=== PATIENT | male | born 1975 ===

== ENCOUNTER 2017-09-15 12:34 | Inpatient (IN) | payer OTHER ==
--- NOTE | 2017-09-15 14:41 | RAD ---
HISTORY: SOB COMPARISON: Lung bases on CT abdomen and pelvis performed 10/05/16 TECHNIQUE: Chest, one view. FINDINGS: Examination limited by habitus and hypoinflation. LUNGS: No focal consolidation. Hiatal hernia demonstrated on CT is not appreciated on this single portable view. Please note that chest x-ray has limited sensitivity for the detection of pulmonary masses. PLEURA: No significant pleural effusion identified. No definite pneumothorax . CARDIOVASCULAR: The cardiomediastinal silhouette appears within normal limits of size. OSSEOUS STRUCTURES: No acute osseous abnormality identified. VISUALIZED UPPER ABDOMEN: Unremarkable. OTHER FINDINGS: None. IMPRESSION: No focal consolidation, significant pleural effusion, or definite pneumothorax identified.
--- NOTE | 2017-09-15 14:43 | C.PDOC ---
History Of Present Illness 42 year old male with PMHx of seizures presents to the ED for evaluation of intermittent episodes of head and ear pressure for the past 3 weeks that has been more frequent over the past few days. 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 Patient reports that he had diarrhea 3 weeks ago after eating out in a buffet, diarrhea has since resolved. Patient states his episodes last between 5-10 minutes when he feels head and ear pressure along with dizziness, nausea, blurry vision and feel unsteady on his feet. Patient reports he tried taking Ibuprofen. Patient denies cough, congestion, fever, abdominal pain, diarrhea, constipation, vomit, urinary symptoms. Time Seen by Provider: 09/15/17 13:42 Chief Complaint (Nursing): Dizziness/Lightheaded History Per: Patient History/Exam Limitations: language barrier Onset/Duration Of Symptoms: Days Current Symptoms Are (Timing): Gone Associated Symptoms Preceding Syncopal Episode: No Predromal Symptoms (Sudden Onset) Seizure Or Post-ictal Symptoms: None Fall Associated With With Symptoms: No Severity: None Recent travel outside of the [place]: No Additional History Per: Patient Past Medical History Reviewed: Historical Data, Nursing Documentation, Vital Signs Vital Signs: Last Vital Signs Temp 98.2 F 09/15/17 13:01 Pulse 60 09/15/17 13:01 Resp 20 09/15/17 13:01 BP 121/82 09/15/17 13:01 Pulse Ox 98 09/15/17 18:21 - Medical History PMH: Seizures Denies: Chronic Kidney Disease Other Surgeries: Benign cerebral tumor removed on 2009 Family History: States: Unknown Family Hx - Social History Hx Alcohol Use: Yes Hx Substance Use: No - Immunization History Hx Tetanus Toxoid Vaccination: No Hx Influenza Vaccination: No Hx Pneumococcal Vaccination: No Review Of Systems Constitutional: Negative for: Fever, Chills Eyes: Positive for: Vision Change ENT: Positive for: Ear Pain Cardiovascular: Negative for: Chest Pain, Palpitations Respiratory: Negative for: Cough Gastrointestinal: Positive for: Nausea. Negative for: Vomiting, Abdominal Pain Genitourinary: Negative for: Dysuria Musculoskeletal: Negative for: Back Pain Skin: Negative for: Rash Neurological: Positive for: Headache, Dizziness. Negative for: Weakness, Numbness Physical Exam - Physical Exam Appears: Non-toxic, No Acute Distress Skin: Normal Color, Warm, Dry Head: Atraumatic, Normacephalic Nose: No Discharge, No Deformity Oral Mucosa: Moist Neck: Normal ROM, Supple Chest: Symmetrical Cardiovascular: Rhythm Regular, No Murmur Respiratory: Normal Breath Sounds, No Rales, No Rhonchi, No Wheezing Gastrointestinal/Abdominal: Soft, No Tenderness, No Distention, No Rebound Extremity: Normal ROM, No Pedal Edema, No Calf Tenderness, No Deformity, No Swelling Neurological/Psych: Oriented x3, Normal Speech, Normal Cognition Gait: Steady ED Course And Treatment - Laboratory Results Result Diagrams: 09/15/17 15:06 09/15/17 15:06 ECG: Interpreted By Me, Viewed By Me ECG Rhythm: Sinus Bradycardia ECG Interpretation: Normal Rate From EC O2 Sat by Pulse Oximetry: 98 (On RA) Pulse Ox Interpretation: Normal - Radiology CXR: Interpreted by Me, Viewed By Me CXR Interpretation: Yes: Other (No focal consolidation, significant pleural effusion, or definite pneumothorax identified.). No: No Acute Disease, Infiltrates - CT Scan/US CT head Other Rad Studies (CT/US): Interpreted By Me, Read By Radiologist, Radiology Report Reviewed CT/US Interpretation: FINDINGS: HEMORRHAGE: No intracranial hemorrhage. BRAIN : There is a 2.8 x 2.1 cm hyperdense lesion with irregular enhancing rim in the left paramedian inferior frontal lobe with extensive vasogenic edema in the right frontal lobe extending to the genu of corpus callosum on the right. There is local mass effect, subfalcine herniation and approximately 6 mm midline shift from right to left. There is redemonstration of cystic encephalomalacia and gliosis in the left frontal lobe with dysmorphic calcifications in keeping with postsurgical changes. VENTRICLES: There is mild mass effect on the right frontal horn. No hydrocephalus. CALVARIUM: Status post left frontal craniotomy. SINUSES: Predominantly clear. MASTOID AIR CELLS: Predominantly clear P. OTHER FINDINGS: None. IMPRESSION: 1. 2.8 x 2.1 cm round lesion with irregular enhancing rim in the left paramedian inferior frontal lobe with extensive surrounding vasogenic edema extending to the genu of the corpus callosum on the right with local mass effect on the right frontal horn and 6 mm midline shift from right to left with subfalcine herniation. The differential considerations include glioblastoma, metastasis and abscess. MRI of the brain without and with intravenous contrast is recommended for further characterization. 2. Cystic encephalomalacia and gliosis with dysmorphic calcifications in the left frontal lobe in keeping with postsurgical changes. Critical findings were discussed with Dr. Valentina Platt on 09/15/2017 at 4:50 p.m. Medical Decision Making Medical Decision Making: Impression : 42 y/o male c/o head and ear pressure Plan: * CT head * EKG * CXR * Influenza A B test * UA Spoke with Dr. Ferguson who recomended an MRI with contrast in the morning as well as ICU admission for observation for 24 hrs. Patient's case was discussed with Dr. Mendez who says he will come down to evaluate the patient before accepting the patient to ICU. Patient had his previous tumor resection in [place] on 2016. Disposition Discussed With Dr.: Alton Ferguson Doctor Will See Patient In The: Hospital Counseled Patient/Family Regarding: Studies Performed, Diagnosis - Disposition Disposition: HOSPITALIZED Disposition Time: 18:22 Condition: GUARDED Forms: [facility] (Khmer) - Clinical Impression Clinical Impression: Brain tumor - Scribe Statement The provider has reviewed the documentation as recorded by the Scribe Raghu Avelar All medical record entries made by the Scribe were at my direction and personally dictated by me. I have reviewed the chart and agree that the record accurately reflects my personal performance of the history, physical exam, medical decision making, and the department course for this patient. I have also personally directed, reviewed, and agree with the discharge instructions and disposition. Physician Patient Turnover Patient Signed Over To: Rachel Kennedy Handoff Comments: patient with brain tummor pending ICU eval
[2017-09-15 15:12] LABS: BASO % 0.4 % (0.0-2.0); EOS % 0.5 % (0.0-4.0); HEMATOCRIT 40.7 % (35.0-51.0); LYMPH # 1.1 K/uL (1.0-4.3); LYMPH % 14.4 % (20.0-40.0); MEAN CORPUSCULAR HEMOGLOBIN 32.3 pg (27.0-31.0); MEAN CORPUSCULAR HGB CONC 35.2 g/dL (33.0-37.0); MEAN PLATELET VOLUME 9.7 fL (7.2-11.7); MONO # 0.5 K/uL (0.0-0.8); MONO % 6.4 % (0.0-10.0); RED CELL DISTRIBUTION WIDTH 12.8 % (11.5-14.5); WHITE BLOOD COUNT 7.9 K/uL (4.8-10.8)
[2017-09-15 15:18] LABS: MEAN CELL VOLUME 91.8 fL (80.0-94.0)
[2017-09-15 15:23] LABS: RBC URINE 2 /hpf (0-3); URINE BILIRUBIN NEGATIVE (NEGATIVE); URINE BLOOD NEGATIVE (NEGATIVE); URINE COLOR Yellow (YELLOW); URINE GLUCOSE (UA) NORMAL (Normal); URINE KETONE NEGATIVE (NEGATIVE); URINE LEUKOCYTE ESTERASE NEG Leu/uL (Negative); URINE PROTEIN NEGATIVE (NEGATIVE); URINE UROBILINOGEN NORMAL mg/dL (0.2-1.0); WBC URINE 1 /hpf (0-5)
[2017-09-15 15:28] LABS: ALCOHOL SERUM < 10 mg/dl (0-10); ALKALINE PHOSPHATASE 43 U/L (38-126); ALT/SGPT 17 U/L (21-72); AST/SGOT 20 U/L (17-59); BILIRUBIN,TOTAL 0.6 mg/dL (0.2-1.3); BLOOD UREA NITROGEN 16 mg/dL (9-20); CALCIUM 8.3 mg/dl (8.6-10.4); CARBON DIOXIDE 26 mmol/L (22-30); CHLORIDE 103 mmol/L (98-107); GFR AFRICAN-AMERICAN > 60; GLUCOSE,RANDOM 104 mg/dL (75-110); POTASSIUM 3.7 mmol/L (3.6-5.2); SODIUM 136 mmol/L (132-148); TOTAL PROTEIN 7.7 g/dL (6.3-8.3)
[2017-09-15] MEDS ORDERED: Iodixanol 320 MG/ML 100 ML BOTTLE IV ONE (15:54)
--- NOTE | 2017-09-15 16:53 | CT ---
PROCEDURE: CT HEAD WITH AND WITHOUT CONTRAST HISTORY: hx of benign tumor, headache COMPARISON: MRI brain without and with intravenous contrast 12/25/2016 TECHNIQUE: Axial computed tomography images were obtained through the head/brain with and without intravenous contrast enhancement. Contrast dose: 100 ML Visipaque Radiation dose: Total exam DLP = 1826.21 mGy-cm. This CT exam was performed using one or more of the following dose reduction techniques: Automated exposure control, adjustment of the mA and/or kV according to patient size, and/or use of iterative reconstruction technique. FINDINGS: HEMORRHAGE: No intracranial hemorrhage. BRAIN: There is a 2.8 x 2.1 cm hyperdense lesion with irregular enhancing rim in the left paramedian inferior frontal lobe with extensive vasogenic edema in the right frontal lobe extending to the genu of corpus callosum on the right. There is local mass effect, subfalcine herniation and approximately 6 mm midline shift from right to left. There is redemonstration of cystic encephalomalacia and gliosis in the left frontal lobe with dysmorphic calcifications in keeping with postsurgical changes. VENTRICLES: There is mild mass effect on the right frontal horn. No hydrocephalus. CALVARIUM: Status post left frontal craniotomy. SINUSES: Predominantly clear. MASTOID AIR CELLS: Predominantly clear P OTHER FINDINGS: None. IMPRESSION: 1. 2.8 x 2.1 cm round lesion with irregular enhancing rim in the left paramedian inferior frontal lobe with extensive surrounding vasogenic edema extending to the genu of the corpus callosum on the right with local mass effect on the right frontal horn and 6 mm midline shift from right to left with subfalcine herniation. The differential considerations include glioblastoma, metastasis and abscess. MRI of the brain without and with intravenous contrast is recommended for further characterization. 2. Cystic encephalomalacia and gliosis with dysmorphic calcifications in the left frontal lobe in keeping with postsurgical changes. Critical findings were discussed with Dr. Valentina Platt on 09/15/2017 at 4:50 p.m.
[2017-09-15] MEDS ORDERED: Dexamethasone 4 mg/1 ml IVP STA (17:34)
[2017-09-15] MEDS ORDERED: levETIRAcetam 500 MG in Sodium Chloride 0.9% 100 ML IVPB SCH (23:00)
[2017-09-15] MEDS ORDERED: levETIRAcetam 500 MG in Sodium Chloride 0.9% 100 ML IVPB STA (23:03)
--- NOTE | 2017-09-15 23:20 | CP.PCM.HP ---
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 He describes the pressure as someone pressing on his ears. It when he was working and has progressively became worse. He ois also complaining of nausea approx 1 time per day but no vomiting. Now he is unable to sleep and the he since Wednesday the episodes of nausea have become worse. The partial resection was done in [place] in 2009. Patient states that the surgeon did not want to do more for fear of injury to his health brain tissue. He then received brain radiation with instructions to follow up for CT scans with contrast. He was compliant with his follow up. When he moved to the [facility] he was taken under the care of Dr. Shukla. He also had the patient go for CT scans to monitor the mass. After the most recent CT scan Dr. Shukla told the patient to come to the ED. Patient is also complaining of a single occurrence of "pixilated" vision 3 weeks ago. Patient does have a history of seizures, but the last seizure was 6-7 years ago. Denies any numbness or weakness. ROS: Per HPI PMD: Diana Shukla PMH: Christianne D/O, Richard tumor partially resected in 2009, Perforated Diverticulitis (conservative management) PSH: Brain tumor resection of the L. Frontal Lobe, Brain radiation FH: unremarkable SH: denies smoking, drinking, drugs Meds: See MAR All: None Present on Admission - Present on Admission Any Indicators Present on Admission: No Review of Systems - Review of Systems Review of Systems: Per HPI Past Patient History - Infectious Disease Hx of Infectious Diseases: None - Past Medical History & Family History Past Medical History?: Yes - Past Social History Smoking Status: Never Smoked - CARDIAC Hx Cardiac Disorders: No - PULMONARY Hx Respiratory Disorders: No - NEUROLOGICAL Hx Neurological Disorder: Yes Hx Seizures: Yes Other/Comment: cerebral tumor - HEENT Hx HEENT Problems: No - RENAL Hx Chronic Kidney Disease: No - ENDOCRINE/METABOLIC Hx Endocrine Disorders: No - HEMATOLOGICAL/ONCOLOGICAL Hx Blood Disorders: No - INTEGUMENTARY Hx Dermatological Problems: No - MUSCULOSKELETAL/RHEUMATOLOGICAL Hx Musculoskeletal Disorders: No Hx Falls: No - GASTROINTESTINAL Hx Gastrointestinal Disorders: Yes Hx Diverticulitis: Yes - GENITOURINARY/GYNECOLOGICAL Hx Genitourinary Disorders: No - PSYCHIATRIC Hx Psychophysiologic Disorder: No Hx Substance Use: No - SURGICAL HISTORY Hx Surgeries: Yes Other/Comment: brain tumor removal 2010 - ANESTHESIA Hx Anesthesia: Yes Hx Anesthesia Reactions: No Hx Malignant Hyperthermia: No Has any member of the family had a problem w/ anesthesia?: No Meds Allergies/Adverse Reactions: Allergies Allergy/AdvReac Type Severity Reaction Status Date / Time No Known Allergies Allergy Verified 09/15/17 13:05 Physical Exam - Constitutional Appears: Well, Non-toxic, No Acute Distress - Head Exam Head Exam: ATRAUMATIC, NORMAL INSPECTION, NORMOCEPHALIC - Eye Exam Eye Exam: EOMI Pupil Exam: NORMAL ACCOMODATION - ENT Exam ENT Exam: Mucous Membranes Moist - Respiratory Exam Respiratory Exam: Clear to Auscultation Bilateral, NORMAL BREATHING PATTERN - Cardiovascular Exam Cardiovascular Exam: REGULAR RHYTHM - GI/Abdominal Exam GI & Abdominal Exam: Normal Bowel Sounds, Soft. absent: Distended, Tenderness - Extremities Exam Extremities exam: Negative for: joint swelling, tenderness - Neurological Exam Neurological exam: Alert, CN II-XII Intact, Oriented x3 - Expanded Neurological Exam Expanded Neurological exam: Protecting the Airway Patient oriented to: person, place, time Speech: Fluid Speech Cranial nerves: EOM's Intact: Normal, Facial Palsey w/Forehead Movement: Normal , Facial Palsey w/o Forehead Movement: Normal, Facial Sensation: Normal, Nystagmus: Normal, Tongue Deviation: Normal Cerebellar Function: Finger to Nose: Normal, Heel to Dickson: Normal, Romberg: Normal Upper motor neuron: Babinski Sign: Normal, Pronator Drift: Normal, Sensory Extinction: Normal Sensory exam: Lower Extremity Light Touch: Normal, Upper Extremity Light Touch: Normal Neuro motor strength exam: Left Upper Extremity: 5, Right Upper Extremity: 5, Left Lower Extremity: 5, Right Lower Extremity: 5 Coma Scale Eye Opening: SPONTANEOUS Coma Scale Motor Response: OBEYS COMMANDS Coma Scale Verbal: Oriented Coma Scale Total: 15 - Psychiatric Exam Psychiatric exam: Normal Affect, Normal Mood - Skin Skin Exam: Dry, Intact, Normal Color, Warm Results - Vital Signs Recent Vital Signs: Last Vital Signs Temp 98.5 F 09/15/17 21:45 Pulse 76 09/15/17 22:01 Resp 17 09/15/17 22:01 BP 134/93 H 09/15/17 22:01 Pulse Ox 98 09/15/17 22:01 - Labs Result Diagrams: 09/15/17 15:06 09/15/17 15:06 Labs: Laboratory Results - last 24 hr 09/15/17 09/15/17 09/15/17 13:45 15:06 15:06 WBC 7.9 RBC 4.44 Hgb 14.3 Hct 40.7 MCV 91.8 D MCH 32.3 H MCHC 35.2 RDW 12.8 Plt Count 206 MPV 9.7 Neut % (Auto) 78.3 H Lymph % (Auto) 14.4 L [place] % (Auto) 6.4 Eos % (Auto) 0.5 Baso % (Auto) 0.4 Neut # 6.2 Lymph # 1.1 Prentiss # 0.5 Eos # 0.0 Baso # 0.0 Sodium Potassium Chloride Carbon Dioxide Anion Gap BUN Creatinine Est GFR ( Amer) Est GFR (Non-Af Amer) POC Glucose (mg/dL) 116 H Random Glucose Calcium Total Bilirubin AST ALT Alkaline Phosphatase Total Protein Albumin Globulin Albumin/Globulin Ratio Urine Color Yellow Urine Clarity Hazy Urine pH 6.0 Ur Specific [place] 1.021 Urine Protein Negative Urine Glucose (UA) Normal Urine Ketones Negative Urine Blood Negative Urine Nitrate Negative Urine Bilirubin Negative Urine Urobilinogen Normal Ur Leukocyte Esterase Neg Urine WBC (Auto) 1 Urine RBC (Auto) 2 Ur Squamous Epith Cells < 1 Amorphous Sediment Rare H Urine Opiates Screen Urine Methadone Screen Ur Barbiturates Screen Ur Phencyclidine Scrn Ur Amphetamines Screen U Benzodiazepines Scrn U Oth Cocaine Metabols U Cannabinoids Screen Alcohol, Quantitative Influenza Typ A,B (EIA) 09/15/17 09/15/17 09/15/17 15:06 15:06 15:15 WBC RBC Hgb Hct MCV MCH MCHC RDW Plt Count MPV Neut % (Auto) Lymph % (Auto) Prentiss % (Auto) Eos % (Auto) Baso % (Auto) Neut # Lymph # Prentiss # Eos # Baso # Sodium 136 Potassium 3.7 Chloride 103 Carbon Dioxide 26 Anion Gap 11 BUN 16 Creatinine 0.7 L Est GFR ( Amer) > 60 Est GFR (Non-Af Amer) > 60 POC Glucose (mg/dL) Random Glucose 104 Calcium 8.3 L Total Bilirubin 0.6 AST 20 ALT 17 L D Alkaline Phosphatase 43 Total Protein 7.7 Albumin 3.9 Globulin 3.8 Albumin/Globulin Ratio 1.0 Urine Color Urine Clarity Urine pH Ur Specific [place] Urine Protein Urine Glucose (UA) Urine Ketones Urine Blood Urine Nitrate Urine Bilirubin Urine Urobilinogen Ur Leukocyte Esterase Urine WBC (Auto) Urine RBC (Auto) Ur Squamous Epith Cells Amorphous Sediment Urine Opiates Screen Negative Urine Methadone Screen Negative Ur Barbiturates Screen Negative Ur Phencyclidine Scrn Negative Ur Amphetamines Screen Negative U Benzodiazepines Scrn Negative U Oth Cocaine Metabols Negative U Cannabinoids Screen Negative Alcohol, Quantitative < 10 Influenza Typ A,B (EIA) Negative for flu a/b Assessment & Plan (1) Brain tumor Assessment and Plan: MRI in September [address] did not show mass CT today showed a 2.8cm x 2 cm round irregular lesion in the paramedian inf. lobe Neurosurg ([facility]) * recc MRI in AM F/U MRI Status: Acute <Will De Leon - Last Filed: 09/16/17 06:38> Results - Vital Signs Recent Vital Signs: Last Vital Signs Temp 98.1 F 09/16/17 00:00 Pulse 53 L 09/16/17 03:00 Resp 15 09/16/17 03:00 BP 97/60 L 09/16/17 03:00 Pulse Ox 96 09/16/17 03:00 - Labs Result Diagrams: 09/15/17 15:06 09/15/17 15:06 Labs: Laboratory Results - last 24 hr 09/15/17 09/15/17 09/15/17 13:45 15:06 15:06 WBC 7.9 RBC 4.44 Hgb 14.3 Hct 40.7 MCV 91.8 D MCH 32.3 H MCHC 35.2 RDW 12.8 Plt Count 206 MPV 9.7 Neut % (Auto) 78.3 H Lymph % (Auto) 14.4 L Prent[place] % (Auto) 6.4 Eos % (Auto) 0.5 Baso % (Auto) 0.4 Neut # 6.2 Lymph # 1.1 Prentiss # 0.5 Eos # 0.0 Baso # 0.0 Sodium Potassium Chloride Carbon Dioxide Anion Gap BUN Creatinine Est GFR ( Amer) Est GFR (Non-Af Amer) POC Glucose (mg/dL) 116 H Random Glucose Calcium Total Bilirubin AST ALT Alkaline Phosphatase Total Protein Albumin Globulin Albumin/Globulin Ratio Urine Color Yellow Urine Clarity Hazy Urine pH 6.0 Ur Specific [place] 1.021 Urine Protein Negative Urine Glucose (UA) Normal Urine Ketones Negative Urine Blood Negative Urine Nitrate Negative Urine Bilirubin Negative Urine Urobilinogen Normal Ur Leukocyte Esterase Neg Urine WBC (Auto) 1 Urine RBC (Auto) 2 Ur Squamous Epith Cells < 1 Amorphous Sediment Rare H Urine Opiates Screen Urine Methadone Screen Ur Barbiturates Screen Ur Phencyclidine Scrn Ur Amphetamines Screen U Benzodiazepines Scrn U Oth Cocaine Metabols U Cannabinoids Screen Alcohol, Quantitative Influenza Typ A,B (EIA) 09/15/17 09/15/17 09/15/17 15:06 15:06 15:15 WBC RBC Hgb Hct MCV MCH MCHC RDW Plt Count MPV Neut % (Auto) Lymph % (Auto) Prentiss % (Auto) Eos % (Auto) Baso % (Auto) Neut # Lymph # P[place]iss # Eos # Baso # Sodium 136 Potassium 3.7 Chloride 103 Carbon Dioxide 26 Anion Gap 11 BUN 16 Creatinine 0.7 L Est GFR ( Amer) > 60 Est GFR (Non-Af Amer) > 60 POC Glucose (mg/dL) Random Glucose 104 Calcium 8.3 L Total Bilirubin 0.6 AST 20 ALT 17 L D Alkaline Phosphatase 43 Total Protein 7.7 Albumin 3.9 Globulin 3.8 Albumin/Globulin Ratio 1.0 Urine Color Urine Clarity Urine pH Ur Specific [place] Urine Protein Urine Glucose (UA) Urine Ketones Urine Blood Urine Nitrate Urine Bilirubin Urine Urobilinogen Ur Leukocyte Esterase Urine WBC (Auto) Urine RBC (Auto) Ur Squamous Epith Cells Amorphous Sediment Urine Opiates Screen Negative Urine Methadone Screen Negative Ur Barbiturates Screen Negative Ur Phencyclidine Scrn Negative Ur Amphetamines Screen Negative U Benzodiazepines Scrn Negative U Oth Cocaine Metabols Negative U Cannabinoids Screen Negative Alcohol, Quantitative < 10 Influenza Typ A,B (EIA) Negative for flu a/b Assessment & Plan - Date & Time Date: 09/16/17 (I have seen and examined the patient. I agree with the findings and plan of care as documented by Dr. Castañeda. Patient with brain tumor. Consult to Dr Hedrick. Admit to ICU for close monitoring. Neurochecks. Monitor for acute changes.) Time: 06:37 Attending/Attestation - Attestation I have personally seen and examined this patient.: Yes I have fully participated in the care of the patient.: Yes I have reviewed all pertinent clinical information: Yes
--- NOTE | 2017-09-16 01:15 | CP.PCM.CON ---
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 He describes the pressure as someone pressing on his ears. It when he was working and has progressively became worse. He ois also complaining of nausea approx 1 time per day but no vomiting. Now he is unable to sleep and the he since Wednesday the episodes of nausea have become worse. The partial resection was done in [place] in 2009. Patient states that the surgeon did not want to do more for fear of injury to his health brain tissue. He then received brain radiation with instructions to follow up for CT scans with contrast. He was compliant with his follow up. When he moved to the [facility] he was taken under the care of Dr. Shukla. He also had the patient go for CT scans to monitor the mass. After the most recent CT scan Dr. Shukla told the patient to come to the ED. Patient is also complaining of a single occurrence of "pixilated" vision 3 weeks ago. Patient does have a history of seizures, but the last seizure was 6-7 years ago. Denies any numbness or weakness. ROS: Per HPI PMD: Diana Shukla PMH: Siezure D/O, Richard tumor partially resected in 2009, Perforated Diverticulitis (conservative management) PSH: Brain tumor resection of the L. Frontal Lobe, Brain radiation FH: unremarkable SH: denies smoking, drinking, drugs Meds: See MAR All: None Patient in the past and had surgical intervention for the mass in the cranium, had craniotomy. Patient was told that he had a benign tumor, and he was only taking the Keppra until now. He was doing well recently until recently. Review of system: Headache and head pressure noted. Minimal visual disturbance is noted. Complaining of weakness in the legs, unable to walk sometimes. No incontinence noted. Confusion. Also crowding of thoughts noted. No chest pain, no shortness of breath, no vomiting but minimal nausea noted Vital signs reviewed No neck vein distention noted Chest good air entry bilaterally, no wheezing or rales noted CVS regular heart sound, no murmur noted Abdomen soft, nontender. 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 Assessment compression: 42-year-old male with history of brain tumor and now having possible recurrence , malignancy, or underlying pathology involving the right frontal lobe. Cause is unclear. Malignancy possible. Neurosurgical evaluation, Keppra, MRI. Overall prognosis is guarded and will follow the patient. Past Patient History - Infectious Disease Hx of Infectious Diseases: None - Past Medical History & Family History Past Medical History?: Yes - Past Social History Smoking Status: Never Smoked - CARDIAC Hx Cardiac Disorders: No - PULMONARY Hx Respiratory Disorders: No - NEUROLOGICAL Hx Neurological Disorder: Yes Hx Seizures: Yes Other/Comment: cerebral tumor - HEENT Hx HEENT Problems: No - RENAL Hx Chronic Kidney Disease: No - ENDOCRINE/METABOLIC Hx Endocrine Disorders: No - HEMATOLOGICAL/ONCOLOGICAL Hx Blood Disorders: No - INTEGUMENTARY Hx Dermatological Problems: No - MUSCULOSKELETAL/RHEUMATOLOGICAL Hx Musculoskeletal Disorders: No Hx Falls: No - GASTROINTESTINAL Hx Gastrointestinal Disorders: Yes Hx Diverticulitis: Yes - GENITOURINARY/GYNECOLOGICAL Hx Genitourinary Disorders: No - PSYCHIATRIC Hx Psychophysiologic Disorder: No Hx Substance Use: No - SURGICAL HISTORY Hx Surgeries: Yes Other/Comment: brain tumor removal 2009 - ANESTHESIA Hx Anesthesia: Yes Hx Anesthesia Reactions: No Hx Malignant Hyperthermia: No Has any member of the family had a problem w/ anesthesia?: No Meds Allergies/Adverse Reactions: Allergies Allergy/AdvReac Type Severity Reaction Status Date / Time No Known Allergies Allergy Verified 09/15/17 13:05 - Medications Medications: Current Medications Levetiracetam 500 mg/ Sodium (Chloride) 105 mls @ 420 mls/hr IVPB Q12 JOSE Results - Vital Signs Recent Vital Signs: Last Vital Signs Temp 98.5 F 09/15/17 21:45 Pulse 60 09/15/17 23:00 Resp 16 09/15/17 23:00 BP 126/84 09/15/17 23:00 Pulse Ox 98 09/15/17 22:01 - Labs Result Diagrams: 09/15/17 15:06 09/15/17 15:06 Labs: Laboratory Results - last 24 hr 09/15/17 09/15/17 09/15/17 13:45 15:06 15:06 WBC 7.9 RBC 4.44 Hgb 14.3 Hct 40.7 MCV 91.8 D MCH 32.3 H MCHC 35.2 RDW 12.8 Plt Count 206 MPV 9.7 Neut % (Auto) 78.3 H Lymph % (Auto) 14.4 L [place] % (Auto) 6.4 Eos % (Auto) 0.5 Baso % (Auto) 0.4 Neut # 6.2 Lymph # 1.1 [place] # 0.5 Eos # 0.0 Baso # 0.0 Sodium Potassium Chloride Carbon Dioxide Anion Gap BUN Creatinine Est GFR ( Amer) Est GFR (Non-Af Amer) POC Glucose (mg/dL) 116 H Random Glucose Calcium Total Bilirubin AST ALT Alkaline Phosphatase Total Protein Albumin Globulin Albumin/Globulin Ratio Urine Color Yellow Urine Clarity Hazy Urine pH 6.0 Ur Specific [place] 1.021 Urine Protein Negative Urine Glucose (UA) Normal Urine Ketones Negative Urine Blood Negative Urine Nitrate Negative Urine Bilirubin Negative Urine Urobilinogen Normal Ur Leukocyte Esterase Neg Urine WBC (Auto) 1 Urine RBC (Auto) 2 Ur Squamous Epith Cells < 1 Amorphous Sediment Rare H Urine Opiates Screen Urine Methadone Screen Ur Barbiturates Screen Ur Phencyclidine Scrn Ur Amphetamines Screen U Benzodiazepines Scrn U Oth Cocaine Metabols U Cannabinoids Screen Alcohol, Quantitative Influenza Typ A,B (EIA) 09/15/17 09/15/17 09/15/17 15:06 15:06 15:15 WBC RBC Hgb Hct MCV MCH MCHC RDW Plt Count MPV Neut % (Auto) Lymph % (Auto) [place] % (Auto) Eos % (Auto) Baso % (Auto) Neut # Lymph # [place] # Eos # Baso # Sodium 136 Potassium 3.7 Chloride 103 Carbon Dioxide 26 Anion Gap 11 BUN 16 Creatinine 0.7 L Est GFR ( Amer) > 60 Est GFR (Non-Af Amer) > 60 POC Glucose (mg/dL) Random Glucose 104 Calcium 8.3 L Total Bilirubin 0.6 AST 20 ALT 17 L D Alkaline Phosphatase 43 Total Protein 7.7 Albumin 3.9 Globulin 3.8 Albumin/Globulin Ratio 1.0 Urine Color Urine Clarity Urine pH Ur Specific [place] Urine Protein Urine Glucose (UA) Urine Ketones Urine Blood Urine Nitrate Urine Bilirubin Urine Urobilinogen Ur Leukocyte Esterase Urine WBC (Auto) Urine RBC (Auto) Ur Squamous Epith Cells Amorphous Sediment Urine Opiates Screen Negative Urine Methadone Screen Negative Ur Barbiturates Screen Negative Ur Phencyclidine Scrn Negative Ur Amphetamines Screen Negative U Benzodiazepines Scrn Negative U Oth Cocaine Metabols Negative U Cannabinoids Screen Negative Alcohol, Quantitative < 10 Influenza Typ A,B (EIA) Negative for flu a/b
[2017-09-16] MEDS ORDERED: Gadodiamide 287 mg/ml 20 ml IV ONE (03:08)
[2017-09-16 07:01] LABS: ALB/GLOB RATIO 1.4 (1.0-2.1); ALKALINE PHOSPHATASE 49 U/L (38-126); ALT/SGPT 13 U/L (21-72); AST/SGOT 19 U/L (17-59); BILIRUBIN,TOTAL 0.5 mg/dL (0.2-1.3); BLOOD UREA NITROGEN 17 mg/dL (9-20); CALCIUM 8.7 mg/dl (8.6-10.4); CARBON DIOXIDE 23 mmol/L (22-30); CHLORIDE 104 mmol/L (98-107); GFR AFRICAN-AMERICAN > 60; GLUCOSE,RANDOM 131 mg/dL (75-110); MAGNESIUM 1.9 mg/dL (1.6-2.3); PHOSPHOROUS 3.3 mg/dL (2.5-4.5); SODIUM 135 mmol/L (132-148); TOTAL PROTEIN 6.6 g/dL (6.3-8.3)
[2017-09-16 07:19] LABS: BASO % 0.1 % (0.0-2.0); HEMATOCRIT 41.1 % (35.0-51.0); LYMPH # 0.8 K/uL (1.0-4.3); LYMPH % 9.6 % (20.0-40.0); MEAN CELL VOLUME 91.1 fL (80.0-94.0); MEAN CORPUSCULAR HEMOGLOBIN 31.8 pg (27.0-31.0); MEAN CORPUSCULAR HGB CONC 34.9 g/dL (33.0-37.0); MEAN PLATELET VOLUME 9.2 fL (7.2-11.7); MONO # 0.2 K/uL (0.0-0.8); NRBC % 0.1 % (0.0-2.0); PLATELET COUNT 225 K/uL (130-400); RED CELL DISTRIBUTION WIDTH 13.1 % (11.5-14.5)
[2017-09-16 08:42] LABS: NEUTROPHIL 92 % (50-75); TOTAL CELLS COUNTED 100
[2017-09-16] MEDS ORDERED: levETIRAcetam 500 MG in Sodium Chloride 0.9% 100 ML IVPB SCH (10:00)
--- NOTE | 2017-09-16 10:07 | CP.PCM.PN ---
Subjective - Date & Time of Evaluation Date of Evaluation: 09/16/17 Time of Evaluation: 09:30 - Subjective Subjective: Lying on bed comfortable,Complaining of headache [employer] 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 He is on keppra. Seen by DR Alonso/primary care in the past.Had MRI brain in november 2016. Objective - Vital Signs/Intake and Output Vital Signs (last 24 hours): Temp Pulse Resp BP Pulse Ox 97.8 F 55 L 12 118/77 98 09/16/17 07:39 09/16/17 07:00 09/16/17 07:00 09/16/17 07:00 09/16/17 07:39 Intake and Output: 09/16/17 09/16/17 06:59 18:59 Intake Total 820 0 Output Total 300 Balance 520 0 - Medications Medications: Current Medications Acetaminophen (Tylenol 325mg Tab) 650 mg PO Q6 PRN PRN Reason: Headache Dexamethasone (Decadron Inj) 10 mg IVP Q8 JOSE Last Admin: 09/16/17 06:45 Dose: 10 mg Famotidine (Pepcid) 20 mg PO BID JOSE Levetiracetam 500 mg/ Sodium (Chloride) 105 mls @ 420 mls/hr IVPB Q12 JOSE Sodium Chloride (Sodium Chloride 0.9%) 1,000 mls @ 75 mls/hr IV .[id number] JOSE Ondansetron HCl (Zofran Inj) 4 mg IVP Q4H PRN PRN Reason: Nausea/Vomiting - Labs Labs: 09/16/17 06:34 09/16/17 06:34 - Constitutional Appears: Non-toxic - Head Exam Head Exam: NORMAL INSPECTION - Eye Exam Eye Exam: Normal appearance - ENT Exam ENT Exam: Mucous Membranes Moist - Neck Exam Neck Exam: Normal Inspection - Respiratory Exam Respiratory Exam: Clear to Ausculation Bilateral, NORMAL BREATHING PATTERN - Cardiovascular Exam Cardiovascular Exam: REGULAR RHYTHM - GI/Abdominal Exam GI & Abdominal Exam: Soft, Normal Bowel Sounds - Exam External exam: NORMAL EXTERNAL EXAM - Extremities Exam Extremities Exam: Full ROM - Back Exam Back Exam: NORMAL INSPECTION - Neurological Exam Neurological Exam: Awake, Oriented x3 - Psychiatric Exam Psychiatric exam: Normal Affect, Normal Mood - Skin Skin Exam: Dry Assessment and Plan - Assessment and Plan (Free Text) Assessment: 42M with a PMH of brain tumor comes to the ED complaining of head pressure for 3 weeks in duration. 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 Case discussed with on oncologist DR Rod in detail this afternoon who recommended to consult radiation oncologist and neurologist. Spoke to Dr Charisse Díaz .As per her given his previous radiation therapy, he would benefit from chemotherapy following surgery. Radiation therapy could possibly be considered if he continues to progress despite chemotherapy given the risks of repeat Radiation. As per oncologist we have to get biopsy to have a definite diagnosis to treat him. D/W Radiologist Dr Cabrera. As per her it looks like Glioblastoma.Discussed with Dr Hedrick about oncologist recommendation. Dr Ferguson is planning to to do debulking surgery and biopsy on Wednesday 1.Brain tumor 2.Headache 3.H/o Oligodendraglioma 4.Nausea Plan: Continue 1. Decodron 10mg q8hrly 2.MgSulfate 2gram once 3.Surgery on Wednesday 4.Tele monitoring 5.Keppra 6.DVT prophylaxis-SCD,GI proph-Pepcid 7.Follow Neurologist Dr Plascencia, Dr Ferguson and DR Rod Plan discussed with the patient and his with Urdu language service
[2017-09-16] MEDS: Sodium Chloride 0.9% 1,000 ML IV SCH ×2 (10:15→22:15)
--- NOTE | 2017-09-16 14:00 | CP.PCM.CON ---
History of Present Illness - History of Present Illness History of Present Illness: Mr Chappell is a 42 year old gentleman from [place] who was recently admitted to [facility] withe head pressure and nausea for 3 weeks. On admission, he had a CT of the head which revealed a 2.8 x 2.1cm irregular left paramedian frontal lobe lesion with extension to the corpus callosum. His medical history is significant for oligodendroglioma for which he underwent a subtotal resection followed by adjuvant radiation therapy for 33 fractions. Past Patient History - Infectious Disease Hx of Infectious Diseases: None - Past Medical History & Family History Past Medical History?: Yes - Past Social History Smoking Status: Never Smoked - CARDIAC Hx Cardiac Disorders: No - PULMONARY Hx Respiratory Disorders: No - NEUROLOGICAL Hx Neurological Disorder: Yes Hx Seizures: Yes Other/Comment: cerebral tumor - HEENT Hx HEENT Problems: No - RENAL Hx Chronic Kidney Disease: No - ENDOCRINE/METABOLIC Hx Endocrine Disorders: No - HEMATOLOGICAL/ONCOLOGICAL Hx Blood Disorders: No - INTEGUMENTARY Hx Dermatological Problems: No - MUSCULOSKELETAL/RHEUMATOLOGICAL Hx Musculoskeletal Disorders: No Hx Falls: No - GASTROINTESTINAL Hx Gastrointestinal Disorders: Yes Hx Diverticulitis: Yes - GENITOURINARY/GYNECOLOGICAL Hx Genitourinary Disorders: No - PSYCHIATRIC Hx Psychophysiologic Disorder: No Hx Substance Use: No - SURGICAL HISTORY Hx Surgeries: Yes Other/Comment: brain tumor removal 2009 - ANESTHESIA Hx Anesthesia: Yes Hx Anesthesia Reactions: No Hx Malignant Hyperthermia: No Has any member of the family had a problem w/ anesthesia?: No Meds Allergies/Adverse Reactions: Allergies Allergy/AdvReac Type Severity Reaction Status Date / Time No Known Allergies Allergy Verified 09/15/17 13:05 - Medications Medications: Current Medications Acetaminophen (Tylenol 325mg Tab) 650 mg PO Q6 PRN PRN Reason: Headache Last Admin: 09/16/17 10:44 Dose: 650 mg Dexamethasone (Decadron Inj) 10 mg IVP Q8 JOSE Last Admin: 09/16/17 13:45 Dose: 10 mg Famotidine (Pepcid) 20 mg PO BID JOSE Last Admin: 09/16/17 10:42 Dose: 20 mg Sodium Chloride (Sodium Chloride 0.9%) 1,000 mls @ 75 mls/hr IV .[id number] JOSE Last Admin: 09/16/17 10:15 Dose: 75 mls/hr Levetiracetam 750 mg/ Sodium (Chloride) 107.5 mls @ 420 mls/hr IVPB Q12 JOSE Last Admin: 09/16/17 12:46 Dose: 420 mls/hr Ondansetron HCl (Zofran Inj) 4 mg IVP Q4H PRN PRN Reason: Nausea/Vomiting Last Admin: 09/16/17 10:44 Dose: 4 mg Results - Vital Signs Recent Vital Signs: Last Vital Signs Temp 97.8 F 09/16/17 07:39 Pulse 67 09/16/17 11:00 Resp 21 09/16/17 11:00 BP 132/80 09/16/17 10:00 Pulse Ox 98 09/16/17 11:00 - Labs Result Diagrams: 09/16/17 06:34 09/16/17 06:34 Labs: Laboratory Results - last 24 hr 09/15/17 09/15/17 09/15/17 13:45 15:06 15:06 WBC 7.9 RBC 4.44 Hgb 14.3 Hct 40.7 MCV 91.8 D MCH 32.3 H MCHC 35.2 RDW 12.8 Plt Count 206 MPV 9.7 Neut % (Auto) 78.3 H Lymph % (Auto) 14.4 L [place] % (Auto) 6.4 Eos % (Auto) 0.5 Baso % (Auto) 0.4 Neut # 6.2 Lymph # 1.1 [place] # 0.5 Eos # 0.0 Baso # 0.0 Neutrophils % (Manual) Lymphocytes % (Manual) Monocytes % (Manual) Platelet Estimate RBC Morphology Sodium Potassium Chloride Carbon Dioxide Anion Gap BUN Creatinine Est GFR ( Amer) Est GFR (Non-Af Amer) POC Glucose (mg/dL) 116 H Random Glucose Calcium Phosphorus Magnesium Total Bilirubin AST ALT Alkaline Phosphatase Total Protein Albumin Globulin Albumin/Globulin Ratio Urine Color Yellow Urine Clarity Hazy Urine pH 6.0 Ur Specific [place] 1.021 Urine Protein Negative Urine Glucose (UA) Normal Urine Ketones Negative Urine Blood Negative Urine Nitrate Negative Urine Bilirubin Negative Urine Urobilinogen Normal Ur Leukocyte Esterase Neg Urine WBC (Auto) 1 Urine RBC (Auto) 2 Ur Squamous Epith Cells < 1 Amorphous Sediment Rare H Urine Opiates Screen Urine Methadone Screen Ur Barbiturates Screen Ur Phencyclidine Scrn Ur Amphetamines Screen U Benzodiazepines Scrn U Oth Cocaine Metabols U Cannabinoids Screen Alcohol, Quantitative Influenza Typ A,B (EIA) 09/15/17 09/15/17 09/15/17 15:06 15:06 15:15 WBC RBC Hgb Hct MCV MCH MCHC RDW Plt Count MPV Neut % (Auto) Lymph % (Auto) [place] % (Auto) Eos % (Auto) Baso % (Auto) Neut # Lymph # [place] # Eos # Baso # Neutrophils % (Manual) Lymphocytes % (Manual) Monocytes % (Manual) Platelet Estimate RBC Morphology Sodium 136 Potassium 3.7 Chloride 103 Carbon Dioxide 26 Anion Gap 11 BUN 16 Creatinine 0.7 L Est GFR ( Amer) > 60 Est GFR (Non-Af Amer) > 60 POC Glucose (mg/dL) Random Glucose 104 Calcium 8.3 L Phosphorus Magnesium Total Bilirubin 0.6 AST 20 ALT 17 L D Alkaline Phosphatase 43 Total Protein 7.7 Albumin 3.9 Globulin 3.8 Albumin/Globulin Ratio 1.0 Urine Color Urine Clarity Urine pH Ur Specific [place] Urine Protein Urine Glucose (UA) Urine Ketones Urine Blood Urine Nitrate Urine Bilirubin Urine Urobilinogen Ur Leukocyte Esterase Urine WBC (Auto) Urine RBC (Auto) Ur Squamous Epith Cells Amorphous Sediment Urine Opiates Screen Negative Urine Methadone Screen Negative Ur Barbiturates Screen Negative Ur Phencyclidine Scrn Negative Ur Amphetamines Screen Negative U Benzodiazepines Scrn Negative U Oth Cocaine Metabols Negative U Cannabinoids Screen Negative Alcohol, Quantitative < 10 Influenza Typ A,B (EIA) Negative for flu a/b 09/16/17 09/16/17 09/16/17 06:34 06:34 07:26 WBC 8.0 RBC 4.51 Hgb 14.3 Hct 41.1 MCV 91.1 MCH 31.8 H MCHC 34.9 RDW 13.1 Plt Count 225 MPV 9.2 Neut % (Auto) 88.3 H Lymph % (Auto) 9.6 L [place] % (Auto) 2.0 Eos % (Auto) 0.0 Baso % (Auto) 0.1 Neut # 7.0 Lymph # 0.8 L [place] # 0.2 Eos # 0.0 Baso # 0.0 Neutrophils % (Manual) 92 H Lymphocytes % (Manual) 7 L Monocytes % (Manual) 1 Platelet Estimate Normal RBC Morphology Normal Sodium 135 Potassium 4.0 Chloride 104 Carbon Dioxide 23 Anion Gap 11 BUN 17 Creatinine 0.7 L Est GFR ( Amer) > 60 Est GFR (Non-Af Amer) > 60 POC Glucose (mg/dL) 123 H Random Glucose 131 H Calcium 8.7 Phosphorus 3.3 Magnesium 1.9 Total Bilirubin 0.5 AST 19 ALT 13 L D Alkaline Phosphatase 49 Total Protein 6.6 Albumin 3.9 Globulin 2.7 Albumin/Globulin Ratio 1.4 Urine Color Urine Clarity Urine pH Ur Specific [place] Urine Protein Urine Glucose (UA) Urine Ketones Urine Blood Urine Nitrate Urine Bilirubin Urine Urobilinogen Ur Leukocyte Esterase Urine WBC (Auto) Urine RBC (Auto) Ur Squamous Epith Cells Amorphous Sediment Urine Opiates Screen Urine Methadone Screen Ur Barbiturates Screen Ur Phencyclidine Scrn Ur Amphetamines Screen U Benzodiazepines Scrn U Oth Cocaine Metabols U Cannabinoids Screen Alcohol, Quantitative Influenza Typ A,B (EIA) 09/16/17 12:07 WBC RBC Hgb Hct MCV MCH MCHC RDW Plt Count MPV Neut % (Auto) Lymph % (Auto) [place] % (Auto) Eos % (Auto) Baso % (Auto) Neut # Lymph # [place] # Eos # Baso # Neutrophils % (Manual) Lymphocytes % (Manual) Monocytes % (Manual) Platelet Estimate RBC Morphology Sodium Potassium Chloride Carbon Dioxide Anion Gap BUN Creatinine Est GFR ( Amer) Est GFR (Non-Af Amer) POC Glucose (mg/dL) 123 H Random Glucose Calcium Phosphorus Magnesium Total Bilirubin AST ALT Alkaline Phosphatase Total Protein Albumin Globulin Albumin/Globulin Ratio Urine Color Urine Clarity Urine pH Ur Specific [place] Urine Protein Urine Glucose (UA) Urine Ketones Urine Blood Urine Nitrate Urine Bilirubin Urine Urobilinogen Ur Leukocyte Esterase Urine WBC (Auto) Urine RBC (Auto) Ur Squamous Epith Cells Amorphous Sediment Urine Opiates Screen Urine Methadone Screen Ur Barbiturates Screen Ur Phencyclidine Scrn Ur Amphetamines Screen U Benzodiazepines Scrn U Oth Cocaine Metabols U Cannabinoids Screen Alcohol, Quantitative Influenza Typ A,B (EIA) Assessment & Plan - Assessment and Plan (Free Text) Assessment: Mr Chappell is a 42 year old gentleman with a 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 Given his previous primary brain cancer and radiation therapy history, he would benefit from a MRI of the brain to better characterize the lesion plus surgical evaluation for resection (if this can be safely performed). The purpose of resection/biopsy would be for pathology since this may be a recurrence of the oligodendroglioma or it is equally possible that the oligodendroglioma has dedifferentiated to a more aggressive subtype. Given his previous radiation therapy, he would benefit from chemotherapy following surgery. Radiation therapy could possibly be considered if he continues to progress despite chemotherapy given the risks of reirradiation including brain necrosis.
--- NOTE | 2017-09-16 14:38 | CP.PCM.CON ---
History of Present Illness - History of Present Illness History of Present Illness: Mr. 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 CT of the head showed increasing edema and midline shift as compared to an MRI done 9 months ago. He was started on dexamethasone and maintained on Keppra. He continues to complain of headache, dizziness and nausea, but has not had vomiting. Review of Systems - Review of Systems All systems: reviewed and no additional remarkable complaints except Past Patient History - Infectious Disease Hx of Infectious Diseases: None - Past Medical History & Family History Past Medical History?: Yes - Past Social History Smoking Status: Never Smoked - CARDIAC Hx Cardiac Disorders: No - PULMONARY Hx Respiratory Disorders: No - NEUROLOGICAL Hx Neurological Disorder: Yes Hx Seizures: Yes Other/Comment: cerebral tumor - HEENT Hx HEENT Problems: No - RENAL Hx Chronic Kidney Disease: No - ENDOCRINE/METABOLIC Hx Endocrine Disorders: No - HEMATOLOGICAL/ONCOLOGICAL Hx Blood Disorders: No - INTEGUMENTARY Hx Dermatological Problems: No - MUSCULOSKELETAL/RHEUMATOLOGICAL Hx Musculoskeletal Disorders: No Hx Falls: No - GASTROINTESTINAL Hx Gastrointestinal Disorders: Yes Hx Diverticulitis: Yes - GENITOURINARY/GYNECOLOGICAL Hx Genitourinary Disorders: No - PSYCHIATRIC Hx Psychophysiologic Disorder: No Hx Substance Use: No - SURGICAL HISTORY Hx Surgeries: Yes Other/Comment: brain tumor removal 2009 - ANESTHESIA Hx Anesthesia: Yes Hx Anesthesia Reactions: No Hx Malignant Hyperthermia: No Has any member of the family had a problem w/ anesthesia?: No Meds Allergies/Adverse Reactions: Allergies Allergy/AdvReac Type Severity Reaction Status Date / Time No Known Allergies Allergy Verified 09/15/17 13:05 - Medications Medications: Current Medications Acetaminophen (Tylenol 325mg Tab) 650 mg PO Q6 PRN PRN Reason: Headache Last Admin: 09/16/17 10:44 Dose: 650 mg Dexamethasone (Decadron Inj) 10 mg IVP Q8 JOSE Last Admin: 09/16/17 13:45 Dose: 10 mg Famotidine (Pepcid) 20 mg PO BID JOSE Last Admin: 09/16/17 10:42 Dose: 20 mg Sodium Chloride (Sodium Chloride 0.9%) 1,000 mls @ 75 mls/hr IV .[id number] JOSE Last Admin: 09/16/17 10:15 Dose: 75 mls/hr Levetiracetam 750 mg/ Sodium (Chloride) 107.5 mls @ 420 mls/hr IVPB Q12 JOSE Last Admin: 09/16/17 12:46 Dose: 420 mls/hr Ondansetron HCl (Zofran Inj) 4 mg IVP Q4H PRN PRN Reason: Nausea/Vomiting Last Admin: 09/16/17 10:44 Dose: 4 mg Physical Exam - Constitutional Appears: No Acute Distress - Head Exam Head Exam: ATRAUMATIC, NORMAL INSPECTION, NORMOCEPHALIC - Eye Exam Eye Exam: EOMI, Normal appearance, PERRL - ENT Exam ENT Exam: Mucous Membranes Moist, Normal Exam - Neck Exam Neck exam: Positive for: Normal Inspection - Respiratory Exam Respiratory Exam: Clear to Auscultation Bilateral, NORMAL BREATHING PATTERN - Cardiovascular Exam Cardiovascular Exam: REGULAR RHYTHM - GI/Abdominal Exam GI & Abdominal Exam: Normal Bowel Sounds, Soft. absent: Tenderness - Rectal Exam Rectal Exam: Deferred - Extremities Exam Extremities exam: Positive for: normal inspection - Back Exam Back exam: NORMAL INSPECTION - Neurological Exam Neurological exam: Abnormal Gait, Alert, CN II-XII Intact, Oriented x3 Additional comments: Reflexes brisk in C5/6 and L3/4 with upgoing plantar responses bilaterally. FTN and HTS were normal. - Psychiatric Exam Psychiatric exam: Normal Affect, Normal Mood - Skin Skin Exam: Dry, Intact, Normal Color, Warm Results - Vital Signs Recent Vital Signs: Last Vital Signs Temp 98.2 F 09/16/17 12:00 Pulse 69 09/16/17 14:00 Resp 18 09/16/17 14:00 BP 127/76 09/16/17 14:00 Pulse Ox 99 09/16/17 13:00 - Labs Result Diagrams: 09/16/17 06:34 09/16/17 06:34 Labs: Laboratory Results - last 24 hr 09/15/17 09/15/17 09/15/17 15:06 15:06 15:06 WBC 7.9 RBC 4.44 Hgb 14.3 Hct 40.7 MCV 91.8 D MCH 32.3 H MCHC 35.2 RDW 12.8 Plt Count 206 MPV 9.7 Neut % (Auto) 78.3 H Lymph % (Auto) 14.4 L Hubbard % (Auto) 6.4 Eos % (Auto) 0.5 Baso % (Auto) 0.4 Neut # 6.2 Lymph # 1.1 Hubbard # 0.5 Eos # 0.0 Baso # 0.0 Neutrophils % (Manual) Lymphocytes % (Manual) Monocytes % (Manual) Platelet Estimate RBC Morphology Sodium 136 Potassium 3.7 Chloride 103 Carbon Dioxide 26 Anion Gap 11 BUN 16 Creatinine 0.7 L Est GFR ( Amer) > 60 Est GFR (Non-Af Amer) > 60 POC Glucose (mg/dL) Random Glucose 104 Calcium 8.3 L Phosphorus Magnesium Total Bilirubin 0.6 AST 20 ALT 17 L D Alkaline Phosphatase 43 Total Protein 7.7 Albumin 3.9 Globulin 3.8 Albumin/Globulin Ratio 1.0 Urine Color Yellow Urine Clarity Hazy Urine pH 6.0 Ur Specific [place] 1.021 Urine Protein Negative Urine Glucose (UA) Normal Urine Ketones Negative Urine Blood Negative Urine Nitrate Negative Urine Bilirubin Negative Urine Urobilinogen Normal Ur Leukocyte Esterase Neg Urine WBC (Auto) 1 Urine RBC (Auto) 2 Ur Squamous Epith Cells < 1 Amorphous Sediment Rare H Urine Opiates Screen Urine Methadone Screen Ur Barbiturates Screen Ur Phencyclidine Scrn Ur Amphetamines Screen U Benzodiazepines Scrn U Oth Cocaine Metabols U Cannabinoids Screen Alcohol, Quantitative < 10 Influenza Typ A,B (EIA) 09/15/17 09/15/17 09/16/17 15:06 15:15 06:34 WBC 8.0 RBC 4.51 Hgb 14.3 Hct 41.1 MCV 91.1 MCH 31.8 H MCHC 34.9 RDW 13.1 Plt Count 225 MPV 9.2 Neut % (Auto) 88.3 H Lymph % (Auto) 9.6 L Hubbard % (Auto) 2.0 Eos % (Auto) 0.0 Baso % (Auto) 0.1 Neut # 7.0 Lymph # 0.8 L Hubbard # 0.2 Eos # 0.0 Baso # 0.0 Neutrophils % (Manual) 92 H Lymphocytes % (Manual) 7 L Monocytes % (Manual) 1 Platelet Estimate Normal RBC Morphology Normal Sodium Potassium Chloride Carbon Dioxide Anion Gap BUN Creatinine Est GFR ( Amer) Est GFR (Non-Af Amer) POC Glucose (mg/dL) Random Glucose Calcium Phosphorus Magnesium Total Bilirubin AST ALT Alkaline Phosphatase Total Protein Albumin Globulin Albumin/Globulin Ratio Urine Color Urine Clarity Urine pH Ur Specific [place] Urine Protein Urine Glucose (UA) Urine Ketones Urine Blood Urine Nitrate Urine Bilirubin Urine Urobilinogen Ur Leukocyte Esterase Urine WBC (Auto) Urine RBC (Auto) Ur Squamous Epith Cells Amorphous Sediment Urine Opiates Screen Negative Urine Methadone Screen Negative Ur Barbiturates Screen Negative Ur Phencyclidine Scrn Negative Ur Amphetamines Screen Negative U Benzodiazepines Scrn Negative U Oth Cocaine Metabols Negative U Cannabinoids Screen Negative Alcohol, Quantitative Influenza Typ A,B (EIA) Negative for flu a/b 09/16/17 09/16/17 09/16/17 06:34 07:26 12:07 WBC RBC Hgb Hct MCV MCH MCHC RDW Plt Count MPV Neut % (Auto) Lymph % (Auto) Hubbard % (Auto) Eos % (Auto) Baso % (Auto) Neut # Lymph # Hubbard # Eos # Baso # Neutrophils % (Manual) Lymphocytes % (Manual) Monocytes % (Manual) Platelet Estimate RBC Morphology Sodium 135 Potassium 4.0 Chloride 104 Carbon Dioxide 23 Anion Gap 11 BUN 17 Creatinine 0.7 L Est GFR ( Amer) > 60 Est GFR (Non-Af Amer) > 60 POC Glucose (mg/dL) 123 H 123 H Random Glucose 131 H Calcium 8.7 Phosphorus 3.3 Magnesium 1.9 Total Bilirubin 0.5 AST 19 ALT 13 L D Alkaline Phosphatase 49 Total Protein 6.6 Albumin 3.9 Globulin 2.7 Albumin/Globulin Ratio 1.4 Urine Color Urine Clarity Urine pH Ur Specific [place] Urine Protein Urine Glucose (UA) Urine Ketones Urine Blood Urine Nitrate Urine Bilirubin Urine Urobilinogen Ur Leukocyte Esterase Urine WBC (Auto) Urine RBC (Auto) Ur Squamous Epith Cells Amorphous Sediment Urine Opiates Screen Urine Methadone Screen Ur Barbiturates Screen Ur Phencyclidine Scrn Ur Amphetamines Screen U Benzodiazepines Scrn U Oth Cocaine Metabols U Cannabinoids Screen Alcohol, Quantitative Influenza Typ A,B (EIA) - Imaging and Cardiology MRI - head Status: Image reviewed by me (Significant increase in vasogenic edema and midline shift compared with MRI done in November 2016. There are post surgical changes in the left frontal lobe with edema extending into the right frontal lobe, mass extension. ) Assessment & Plan (1) Brain tumor Assessment and Plan: The rapid progression of the edema and mass effect is concerning for a possible GBM with oligodendroglioma component (GBMO). I recommend the followin. May transfer to telemetry 2. Continue Decadron at 10 mg IV Q8 hours 3. Continue Keppra at 500 mg IV Q12 4. Neurosurgical evaluation for biopsy, histological and genetic analysis 5. PT/OT eval 6. DVT Px 7. Case management and social work consult Thank You. Status: Acute Priority: High
[2017-09-16] MEDS: Magnesium Sulfate 1 gm in D5W 1 GM/100 ML BAG IVPB SCH ×2 (15:38→15:39)
--- NOTE | 2017-09-16 16:23 | CP.CCUPN ---
<Jaky Barrera - Last Filed: 09/16/17 16:15> CCU Subjective - Physician Review Subjective (Free Text): 09/16/17 11:17 Patient seen and examined at bedside. No acute events overnight. Patient resting comfortably in bed. Patient complaining of pressure on the occipital region and nausea. He denies chest pain, SOB, abdominal pain, v/c/d. CCU Objective - Vital Signs / Intake & Output Vital Signs (Last 4 hours): Vital Signs Pulse Resp BP Pulse Ox 09/16/17 15:26 72 110/81 96 09/16/17 14:00 69 18 127/76 09/16/17 13:00 71 19 126/70 99 Intake and Output (Last 8hrs): Intake & Output 09/16/17 09/16/17 09/16/17 06:59 14:59 22:59 Intake Total 580 1175 75 Output Total 300 700 Balance 280 475 75 Intake: Intake, IV Amount 100 435 75 Left Antecubital 100 435 75 Oral 480 740 Output: Urine 300 700 Urine, Voided 300 700 Other: # Voids Urine, Voided 1 1 - Physical Exam Head: Positive for: Atraumatic, Normocephalic Pupils: Positive for: PERRL Extroacular Muscles: Positive for: EOMI Conjunctiva: Positive for: Normal Mouth: Positive for: Moist Mucous Membranes Neck: Positive for: Normal Range of Motion Respiratory/Chest: Positive for: Clear to Auscultation, Good Air Exchange. Negative for: Respiratory Distress, Accessory Muscle Use Cardiovascular: Positive for: Regular Rate and Rhythm, Normal S1, S2 Abdomen: Positive for: Normal Bowel Sounds. Negative for: Tenderness, Distention, Peritoneal Signs Upper Extremity: Positive for: Normal Inspection Lower Extremity: Positive for: Normal Inspection Neurological: Positive for: GCS=15, CN II-XII Intact, Speech Normal Skin: Positive for: Warm, Dry, Normal Color. Negative for: Rashes Psychiatric: Positive for: Alert, Oriented x 3, Normal Insight, Normal Concentration - Medications Active Medications: Active Medications Generic Name Dose Route Start Last Admin Trade Name Freq PRN Reason Stop Dose Admin Acetaminophen 650 mg 09/16/17 09:51 09/16/17 10:44 Tylenol 325mg Tab PO 650 mg Q6 PRN Administration Headache Dexamethasone 10 mg 09/16/17 06:00 09/16/17 13:45 Decadron Inj IVP 10 mg Q8 JOSE Administration Famotidine 20 mg 09/16/17 10:00 09/16/17 10:42 Pepcid PO 20 mg BID JOSE Administration Sodium Chloride 1,000 mls @ 75 mls/hr 09/16/17 08:45 09/16/17 10:15 Sodium Chloride 0.9% IV 75 mls/hr .[id number] JOSE Administration Levetiracetam 750 mg/ Sodium 107.5 mls @ 420 mls/hr 09/16/17 12:00 09/16/17 12:46 Chloride IVPB 420 mls/hr Q12 JOSE Administration Ondansetron HCl 4 mg 09/16/17 09:50 09/16/17 10:44 Zofran Inj IVP 4 mg Q4H PRN Administration Nausea/Vomiting - Patient Studies Lab Studies: Microbiology Studies 09/15/17 Unknown MRSA Culture (Admit) - Final Nose MRSA NOT DETECTED Lab Studies 09/16/17 09/16/17 09/16/17 Range/Units 12:07 07:26 06:34 WBC (4.8-10.8) K/uL RBC (4.40-5.90) Mil/uL Hgb (12.0-18.0) g/dL Hct (35.0-51.0) % MCV (80.0-94.0) fL MCH (27.0-31.0) pg MCHC (33.0-37.0) g/dL RDW (11.5-14.5) % Plt Count (130-400) K/uL MPV (7.2-11.7) fL Neut % (Auto) (50.0-75.0) % Lymph % (Auto) (20.0-40.0) % Wells % (Auto) (0.0-10.0) % Eos % (Auto) (0.0-4.0) % Baso % (Auto) (0.0-2.0) % Neut # (1.8-7.0) K/uL Lymph # (1.0-4.3) K/uL Wells # (0.0-0.8) K/uL Eos # (0.0-0.7) K/uL Baso # (0.0-0.2) K/uL Neutrophils % (Manual) (50-75) % Lymphocytes % (Manual) (20-40) % Monocytes % (Manual) (0-10) % Platelet Estimate (NORMAL) RBC Morphology Sodium 135 (132-148) mmol/L Potassium 4.0 (3.6-5.2) mmol/L Chloride 104 (98-107) mmol/L Carbon Dioxide 23 (22-30) mmol/L Anion Gap 11 (10-20) BUN 17 (9-20) mg/dL Creatinine 0.7 L (0.8-1.5) mg/dL Est GFR ( Amer) > 60 Est GFR (Non-Af Amer) > 60 POC Glucose (mg/dL) 123 H 123 H (65-110) mg/dL Random Glucose 131 H (75-110) mg/dL Calcium 8.7 (8.6-10.4) mg/dl Phosphorus 3.3 (2.5-4.5) mg/dL Magnesium 1.9 (1.6-2.3) mg/dL Total Bilirubin 0.5 (0.2-1.3) mg/dL AST 19 (17-59) U/L ALT 13 L D (21-72) U/L Alkaline Phosphatase 49 (38-126) U/L Total Protein 6.6 (6.3-8.3) g/dL Albumin 3.9 (3.5-5.0) g/dL Globulin 2.7 (2.2-3.9) gm/dL Albumin/Globulin Ratio 1.4 (1.0-2.1) 09/16/17 Range/Units 06:34 WBC 8.0 (4.8-10.8) K/uL RBC 4.51 (4.40-5.90) Mil/uL Hgb 14.3 (12.0-18.0) g/dL Hct 41.1 (35.0-51.0) % MCV 91.1 (80.0-94.0) fL MCH 31.8 H (27.0-31.0) pg MCHC 34.9 (33.0-37.0) g/dL RDW 13.1 (11.5-14.5) % Plt Count 225 (130-400) K/uL MPV 9.2 (7.2-11.7) fL Neut % (Auto) 88.3 H (50.0-75.0) % Lymph % (Auto) 9.6 L (20.0-40.0) % Wells % (Auto) 2.0 (0.0-10.0) % Eos % (Auto) 0.0 (0.0-4.0) % Baso % (Auto) 0.1 (0.0-2.0) % Neut # 7.0 (1.8-7.0) K/uL Lymph # 0.8 L (1.0-4.3) K/uL Wells # 0.2 (0.0-0.8) K/uL Eos # 0.0 (0.0-0.7) K/uL Baso # 0.0 (0.0-0.2) K/uL Neutrophils % (Manual) 92 H (50-75) % Lymphocytes % (Manual) 7 L (20-40) % Monocytes % (Manual) 1 (0-10) % Platelet Estimate Normal (NORMAL) RBC Morphology Normal Sodium (132-148) mmol/L Potassium (3.6-5.2) mmol/L Chloride (98-107) mmol/L Carbon Dioxide (22-30) mmol/L Anion Gap (10-20) BUN (9-20) mg/dL Creatinine (0.8-1.5) mg/dL Est GFR ( Amer) Est GFR (Non-Af Amer) POC Glucose (mg/dL) (65-110) mg/dL Random Glucose (75-110) mg/dL Calcium (8.6-10.4) mg/dl Phosphorus (2.5-4.5) mg/dL Magnesium (1.6-2.3) mg/dL Total Bilirubin (0.2-1.3) mg/dL AST (17-59) U/L ALT (21-72) U/L Alkaline Phosphatase (38-126) U/L Total Protein (6.3-8.3) g/dL Albumin (3.5-5.0) g/dL Globulin (2.2-3.9) gm/dL Albumin/Globulin Ratio (1.0-2.1) Laboratory Results - last 24 hr 09/16/17 09/16/17 09/16/17 06:34 06:34 07:26 WBC 8.0 RBC 4.51 Hgb 14.3 Hct 41.1 MCV 91.1 MCH 31.8 H MCHC 34.9 RDW 13.1 Plt Count 225 MPV 9.2 Neut % (Auto) 88.3 H Lymph % (Auto) 9.6 L Wells % (Auto) 2.0 Eos % (Auto) 0.0 Baso % (Auto) 0.1 Neut # 7.0 Lymph # 0.8 L Wells # 0.2 Eos # 0.0 Baso # 0.0 Neutrophils % (Manual) 92 H Lymphocytes % (Manual) 7 L Monocytes % (Manual) 1 Platelet Estimate Normal RBC Morphology Normal Sodium 135 Potassium 4.0 Chloride 104 Carbon Dioxide 23 Anion Gap 11 BUN 17 Creatinine 0.7 L Est GFR ( Amer) > 60 Est GFR (Non-Af Amer) > 60 POC Glucose (mg/dL) 123 H Random Glucose 131 H Calcium 8.7 Phosphorus 3.3 Magnesium 1.9 Total Bilirubin 0.5 AST 19 ALT 13 L D Alkaline Phosphatase 49 Total Protein 6.6 Albumin 3.9 Globulin 2.7 Albumin/Globulin Ratio 1.4 09/16/17 12:07 WBC RBC Hgb Hct MCV MCH MCHC RDW Plt Count MPV Neut % (Auto) Lymph % (Auto) Wells % (Auto) Eos % (Auto) Baso % (Auto) Neut # Lymph # Wells # Eos # Baso # Neutrophils % (Manual) Lymphocytes % (Manual) Monocytes % (Manual) Platelet Estimate RBC Morphology Sodium Potassium Chloride Carbon Dioxide Anion Gap BUN Creatinine Est GFR ( Amer) Est GFR (Non-Af Amer) POC Glucose (mg/dL) 123 H Random Glucose Calcium Phosphorus Magnesium Total Bilirubin AST ALT Alkaline Phosphatase Total Protein Albumin Globulin Albumin/Globulin Ratio Fingerstick Blood Sugar Results: 123 Review of Systems - Review of Systems All systems: reviewed and no additional remarkable complaints except (as per HPI ) Critical Care Progress Note - Nutrition Nutrition: Nutrition Category Date Time Status Regular Diet [DIET] Diets 09/15/17 Dinner Active Assessment/Plan - Assessment and Plan (Free Text) Assessment: 42M with pmh of seizures and Left frontal lobe Oligodendroglioma with new symptoms (head pressure) Plan: Neuro - oligodendroglioma partially resected in 2009 A&Ox3 Toxicology screen negative Dr. Ferguson consulted - recs appreciated Radiation oncology (Dr. Mcqueen) - recs appreciated Neurology consulted (Dr. Plascencia) - recs appreciated Possibility of transformation to GBM per Dr. Plascencia Heme/Onc consuled ([facility]) - recs appreciated CT Head: 1. 2.8 x 2.1 cm round lesion with irregular enhancing rim in the left paramedian inferior frontal lobe with extensive surrounding vasogenic edema extending to the genu of the corpus callosum on the right with local mass effect on the right frontal horn and 6 mm midline shift from right to left with subfalcine herniation. The differential considerations include glioblastoma, metastasis and abscess. MRI of the brain without and with intravenous contrast is recommended for further characterization. 2. Cystic encephalomalacia and gliosis with dysmorphic calcifications in the left frontal lobe in keeping with postsurgical changes. Keppra 750 mg Q12 Dexamethasone 10 mg IV Q8 Cardio NSR BP stable Respiratory O2 sat 96 on room air Renal I 820 O 300 Balance 520 BUN/Cr: 17/0.7 Fluids, electrolytes, nutrition electrolytes stable NS @75cc/h regular diet Infectious disease T 98.2 WBC 8 MRSA negative Flu negative Hematology/Oncology H&H: 14.3/41.1 Plt: 225 Heme/Onc consuled ([facility]) - recs appreciated GI AST/ALT: /13 Tbili: 0.5 Zofran PRN nausea Endocrine monitor blood glucose Prophylaxis Pepcid 20 mg PO BID <Royce Velasquez - Last Filed: 09/19/17 16:38> CCU Objective - Vital Signs / Intake & Output Vital Signs (Last 4 hours): Vital Signs Temp Pulse Resp BP Pulse Ox 09/19/17 16:19 98.4 F 80 20 123/75 98 09/19/17 15:38 65 - Medications Active Medications: Active Medications Generic Name Dose Route Start Last Admin Trade Name Freq PRN Reason Stop Dose Admin Acetaminophen 650 mg 09/16/17 09:51 09/18/17 08:06 Tylenol 325mg Tab PO 650 mg Q6 PRN Administration Headache Dexamethasone 10 mg 09/16/17 06:00 09/19/17 14:16 Decadron Inj IVP 10 mg Q8 JOSE Administration Famotidine 20 mg 09/16/17 10:00 09/19/17 09:49 Pepcid PO 20 mg BID JOSE Administration Levetiracetam 750 mg/ Sodium 107.5 mls @ 420 mls/hr 09/16/17 12:00 09/19/17 09:48 Chloride IVPB 420 mls/hr Q12 JOSE Administration Ondansetron HCl 4 mg 09/16/17 09:50 09/16/17 10:44 Zofran Inj IVP 4 mg Q4H PRN Administration Nausea/Vomiting - Patient Studies Lab Studies: Microbiology Studies 09/16/17 21:55 MRSA Culture - Final Nose MRSA NOT DETECTED Lab Studies 09/19/17 09/19/17 09/19/17 Range/Units 11:53 08:24 08:24 WBC 12.9 H (4.8-10.8) K/uL RBC 4.45 (4.40-5.90) Mil/uL Hgb 14.1 (12.0-18.0) g/dL Hct 41.3 (35.0-51.0) % MCV 92.7 (80.0-94.0) fL MCH 31.8 H (27.0-31.0) pg MCHC 34.3 (33.0-37.0) g/dL RDW 13.3 (11.5-14.5) % Plt Count 244 (130-400) K/uL MPV 10.3 (7.2-11.7) fL Neut % (Auto) 89.4 H (50.0-75.0) % Lymph % (Auto) 6.1 L (20.0-40.0) % Wells % (Auto) 4.4 (0.0-10.0) % Eos % (Auto) 0.0 (0.0-4.0) % Baso % (Auto) 0.1 (0.0-2.0) % Neut # 11.6 H (1.8-7.0) K/uL Lymph # 0.8 L (1.0-4.3) K/uL Wells # 0.6 (0.0-0.8) K/uL Eos # 0.0 (0.0-0.7) K/uL Baso # 0.0 (0.0-0.2) K/uL Neutrophils % (Manual) 89 H (50-75) % Band Neutrophils % 1 (0-2) % Lymphocytes % (Manual) 9 L (20-40) % Monocytes % (Manual) 1 (0-10) % Platelet Estimate Normal (NORMAL) RBC Morphology Normal Sodium 136 (132-148) mmol/L Potassium 4.1 (3.6-5.2) mmol/L Chloride 102 (98-107) mmol/L Carbon Dioxide 26 (22-30) mmol/L Anion Gap 13 (10-20) BUN 21 H (9-20) mg/dL Creatinine 0.8 (0.8-1.5) mg/dL Est GFR ( Amer) > 60 Est GFR (Non-Af Amer) > 60 POC Glucose (mg/dL) 109 (65-110) mg/dL Random Glucose 121 H (75-110) mg/dL Calcium 8.3 L (8.6-10.4) mg/dl Total Bilirubin 0.5 (0.2-1.3) mg/dL AST 14 L (17-59) U/L ALT 19 L D (21-72) U/L Alkaline Phosphatase 42 (38-126) U/L Total Protein 6.1 L (6.3-8.3) g/dL Albumin 3.5 (3.5-5.0) g/dL Globulin 2.7 (2.2-3.9) gm/dL Albumin/Globulin Ratio 1.3 (1.0-2.1) 09/19/17 09/18/17 09/18/17 Range/Units 06:30 22:03 17:17 WBC (4.8-10.8) K/uL RBC (4.40-5.90) Mil/uL Hgb (12.0-18.0) g/dL Hct (35.0-51.0) % MCV (80.0-94.0) fL MCH (27.0-31.0) pg MCHC (33.0-37.0) g/dL RDW (11.5-14.5) % Plt Count (130-400) K/uL MPV (7.2-11.7) fL Neut % (Auto) (50.0-75.0) % Lymph % (Auto) (20.0-40.0) % Wells % (Auto) (0.0-10.0) % Eos % (Auto) (0.0-4.0) % Baso % (Auto) (0.0-2.0) % Neut # (1.8-7.0) K/uL Lymph # (1.0-4.3) K/uL Wells # (0.0-0.8) K/uL Eos # (0.0-0.7) K/uL Baso # (0.0-0.2) K/uL Neutrophils % (Manual) (50-75) % Band Neutrophils % (0-2) % Lymphocytes % (Manual) (20-40) % Monocytes % (Manual) (0-10) % Platelet Estimate (NORMAL) RBC Morphology Sodium (132-148) mmol/L Potassium (3.6-5.2) mmol/L Chloride (98-107) mmol/L Carbon Dioxide (22-30) mmol/L Anion Gap (10-20) BUN (9-20) mg/dL Creatinine (0.8-1.5) mg/dL Est GFR ( Amer) Est GFR (Non-Af Amer) POC Glucose (mg/dL) 122 H 107 132 H (65-110) mg/dL Random Glucose (75-110) mg/dL Calcium (8.6-10.4) mg/dl Total Bilirubin (0.2-1.3) mg/dL AST (17-59) U/L ALT (21-72) U/L Alkaline Phosphatase (38-126) U/L Total Protein (6.3-8.3) g/dL Albumin (3.5-5.0) g/dL Globulin (2.2-3.9) gm/dL Albumin/Globulin Ratio (1.0-2.1) Laboratory Results - last 24 hr 09/18/17 09/18/17 09/19/17 17:17 22:03 06:30 WBC RBC Hgb Hct MCV MCH MCHC RDW Plt Count MPV Neut % (Auto) Lymph % (Auto) Wells % (Auto) Eos % (Auto) Baso % (Auto) Neut # Lymph # Wells # Eos # Baso # Neutrophils % (Manual) Band Neutrophils % Lymphocytes % (Manual) Monocytes % (Manual) Platelet Estimate RBC Morphology Sodium Potassium Chloride Carbon Dioxide Anion Gap BUN Creatinine Est GFR ( Amer) Est GFR (Non-Af Amer) POC Glucose (mg/dL) 132 H 107 122 H Random Glucose Calcium Total Bilirubin AST ALT Alkaline Phosphatase Total Protein Albumin Globulin Albumin/Globulin Ratio 09/19/17 09/19/17 09/19/17 08:24 08:24 11:53 WBC 12.9 H RBC 4.45 Hgb 14.1 Hct 41.3 MCV 92.7 MCH 31.8 H MCHC 34.3 RDW 13.3 Plt Count 244 MPV 10.3 Neut % (Auto) 89.4 H Lymph % (Auto) 6.1 L Wells % (Auto) 4.4 Eos % (Auto) 0.0 Baso % (Auto) 0.1 Neut # 11.6 H Lymph # 0.8 L Wells # 0.6 Eos # 0.0 Baso # 0.0 Neutrophils % (Manual) 89 H Band Neutrophils % 1 Lymphocytes % (Manual) 9 L Monocytes % (Manual) 1 Platelet Estimate Normal RBC Morphology Normal Sodium 136 Potassium 4.1 Chloride 102 Carbon Dioxide 26 Anion Gap 13 BUN 21 H Creatinine 0.8 Est GFR ( Amer) > 60 Est GFR (Non-Af Amer) > 60 POC Glucose (mg/dL) 109 Random Glucose 121 H Calcium 8.3 L Total Bilirubin 0.5 AST 14 L ALT 19 L D Alkaline Phosphatase 42 Total Protein 6.1 L Albumin 3.5 Globulin 2.7 Albumin/Globulin Ratio 1.3 Critical Care Progress Note - Nutrition Nutrition: Nutrition Category Date Time Status Regular Diet [DIET] Diets 09/15/17 Dinner Active Assessment/Plan - Assessment and Plan (Free Text) Plan: Patient seen and examiend with above resident. Patient with h/o brain mass presents to [facility] (formerly [facility]3] with brain mass. -remains hemodynamically stable - Date & Time Date: 09/19/17 Time: 16:38
--- NOTE | 2017-09-16 18:17 | MRI ---
PROCEDURE: MRI BRAIN WITH AND WITHOUT CONTRAST HISTORY: Brain Mass COMPARISON: CT scan from 09/15/2017 and MRI brain without and with intravenous contrast from 12/25/2016. TECHNIQUE: Multiplanar, multisequence MR images of the brain were obtained with and without intravenous contrast enhancement. 17 mL Omniscan was injected intravenously. FINDINGS: HEMORRHAGE: None DWI: No evidence of an acute or early subacute infarction. BRAIN PARENCHYMA: There is a 2.9 x 1.9 cm heterogeneously enhancing lesion with central low signal intensity in the right paramedian frontal lobe with extensive surrounding vasogenic edema extending to the subcortical white matter in the frontal lobe and genu of corpus callosum on the right with mild mass effect on the right frontal horn, subfalcine herniation and 8 mm midline shift from right to left. 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 There is also redemonstration of heterogeneous enhancement in the surgical bed. There are additional discrete areas of enhancement in the more posterior frontal subcortical white matter (series 11, image 13), the largest of which measures 8 mm and these are new since the prior examination. There is no extra-axial fluid collection. VENTRICLES: No hydrocephalus. CRANIUM: Status post left frontal craniotomy. Otherwise bone marrow signal is within normal limits. ORBITS: Grossly unremarkable. PARANASAL SINUSES/MASTOIDS: Predominantly clear. VASCULAR SYSTEM: There are normal signal voids in the larger intracranial arteries. OTHER FINDINGS: None . IMPRESSION: 1. 2.9 x 1.9 cm heterogeneously enhancing mass in the right paramedian frontal lobe with extensive vasogenic edema extending to the subcortical white matter and genu of corpus callosum on the right with subfalcine herniation and 8 mm midline shift from right to left. Findings are concerning for glioblastoma. The other differential considerations include lymphoma in an immunocompromised patient and metastasis. 2. 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 Additional discrete areas of enhancement in the posterior frontal subcortical white matter and concerning for recurrence/ transformation to high-grade glioma.
--- NOTE | 2017-09-16 18:34 | CON ---
HISTORY OF PRESENT ILLNESS: This is a 42-year-old Romansh-speaking male who had a resection of a brain tumor in 2009 in [place]. He does not know the diagnosis; however he said he received 33 radiation treatments to his head after. He reports having some pressure inside his ears. It progressively worsened and he developed some nausea but no vomiting. He had some difficulty with sleep as nausea worsened. He had an MRI from approximately January of this year which shows that there is evidence of resection with calcifications in it on the left and there is evidence of edema in the right frontal lobe. The CT scan done on admission shows that there is increased edema possibly an underlying mass in the right frontal lobe and some mass effect and shift. At this point, we are awaiting for an MRI and I asked him to try to give any information he can from his previous surgery. I have reviewed his medical history. There is really nothing of significance there. PHYSICAL EXAMINATION NEUROLOGIC: Finds him fully awake, alert, oriented, cooperative. His cranial nerves are fully intact. His pupils are equal. His EOM's are full. His face is symmetric. He has good strength in all muscle groups and normal reflexes. At this point, we are awaiting an MRI. We will make further plans and decision making after the MRI is complete. Alton Ferguson MD
[2017-09-17 06:35] LABS: BASO % 0.2 % (0.0-2.0); HEMATOCRIT 41.7 % (35.0-51.0); LYMPH # 0.9 K/uL (1.0-4.3); LYMPH % 4.8 % (20.0-40.0); MEAN CELL VOLUME 91.2 fL (80.0-94.0); MEAN CORPUSCULAR HEMOGLOBIN 31.7 pg (27.0-31.0); MEAN CORPUSCULAR HGB CONC 34.8 g/dL (33.0-37.0); MEAN PLATELET VOLUME 10.5 fL (7.2-11.7); MONO # 0.3 K/uL (0.0-0.8); MONO % 1.8 % (0.0-10.0); PLATELET COUNT 224 K/uL (130-400); RED CELL DISTRIBUTION WIDTH 12.9 % (11.5-14.5); WHITE BLOOD COUNT 17.9 K/uL (4.8-10.8)
[2017-09-17 06:39] LABS: INR 1.2
[2017-09-17 08:42] LABS: ALB/GLOB RATIO 1.5 (1.0-2.1); ALKALINE PHOSPHATASE 44 U/L (38-126); ALT/SGPT 12 U/L (21-72); AST/SGOT 15 U/L (17-59); BILIRUBIN,TOTAL 0.4 mg/dL (0.2-1.3); BLOOD UREA NITROGEN 17 mg/dL (9-20); CALCIUM 8.2 mg/dl (8.6-10.4); CARBON DIOXIDE 25 mmol/L (22-30); CHLORIDE 106 mmol/L (98-107); GFR AFRICAN-AMERICAN > 60; GLUCOSE,RANDOM 137 mg/dL (75-110); MAGNESIUM 2.1 mg/dL (1.6-2.3); PHOSPHOROUS 4.2 mg/dL (2.5-4.5); POTASSIUM 4.1 mmol/L (3.6-5.2); SODIUM 136 mmol/L (132-148)
[2017-09-17 08:55] LABS: THYROID STIMULATING HORMONE 0.51 mIU/L (0.46-4.68)
[2017-09-17 09:03] LABS: NEUTROPHIL 90 % (50-75); TOTAL CELLS COUNTED 100
--- NOTE | 2017-09-17 10:43 | CP.PCM.PN ---
Subjective - Date & Time of Evaluation Date of Evaluation: 09/17/17 Time of Evaluation: 10:40 - Subjective Subjective: reviewed MRi and spoke to attending new lesion in r frontal lobe according to hx pt has previous oligodendroglioma Discussed with pt and explained risks benefits and alternatives Oncology will not tx without tissue Will proceed on 09/21 with craniotomy and excision Objective - Vital Signs/Intake and Output Vital Signs (last 24 hours): Temp Pulse Resp BP Pulse Ox 98.2 F 62 20 106/64 95 09/17/17 08:16 09/17/17 08:16 09/17/17 08:16 09/17/17 08:16 09/17/17 08:16 Intake and Output: 09/17/17 09/17/17 06:59 18:59 Intake Total 1042 Output Total 875 Balance 167 - Medications Medications: Current Medications Acetaminophen (Tylenol 325mg Tab) 650 mg PO Q6 PRN PRN Reason: Headache Last Admin: 09/16/17 21:45 Dose: 650 mg Dexamethasone (Decadron Inj) 10 mg IVP Q8 [facility] Last Admin: 09/17/17 05:34 Dose: 10 mg Famotidine (Pepcid) 20 mg PO BID [facility]SE Last Admin: 09/17/17 10:33 Dose: 20 mg Levetiracetam 750 mg/ Sodium (Chloride) 107.5 mls @ 420 mls/hr IVPB Q12 [facility]SE Last Admin: 09/16/17 21:45 Dose: 420 mls/hr Ondansetron HCl (Zofran Inj) 4 mg IVP Q4H PRN PRN Reason: Nausea/Vomiting Last Admin: 09/16/17 10:44 Dose: 4 mg - Labs Labs: 09/17/17 06:25 09/17/17 06:25 PT 12.9 SECONDS (9.7-12.2) H 09/17/17 06:25 INR 1.2 09/17/17 06:25
--- NOTE | 2017-09-17 17:31 | CP.PCM.PN ---
Subjective - Date & Time of Evaluation Date of Evaluation: 09/17/17 Time of Evaluation: 17:27 - Subjective Subjective: PGY1 Medicine Note for Dr. Lutz Patient seen and examined at bedside this morning. Patient states he is feeling well and the pressure in his head is greatly improved. He states that his vision is completely normal today. He was informed that he was going to be transferred to [facility] for the procedure on Wednesday since he is going to need increased support and resources after the procedure that [facility] does not specialize in or currently have to provide him. He is expressed his gratitude for the care he received while here and appreciates it. He has no complaints at this time. Objective - Vital Signs/Intake and Output Vital Signs (last 24 hours): Temp Pulse Resp BP Pulse Ox 98.1 F 79 20 120/73 96 09/17/17 15:00 09/17/17 16:00 09/17/17 15:00 09/17/17 15:00 09/17/17 15:00 Intake and Output: 09/17/17 09/17/17 06:59 18:59 Intake Total 1042 875 Output Total 875 Balance 167 875 - Medications Medications: Current Medications Acetaminophen (Tylenol 325mg Tab) 650 mg PO Q6 PRN PRN Reason: Headache Last Admin: 09/16/17 21:45 Dose: 650 mg Dexamethasone (Decadron Inj) 10 mg IVP Q8 [facility] Last Admin: 09/17/17 14:20 Dose: 10 mg Famotidine (Pepcid) 20 mg PO BID [facility] Last Admin: 09/17/17 17:12 Dose: 20 mg Levetiracetam 750 mg/ Sodium (Chloride) 107.5 mls @ 420 mls/hr IVPB Q12 [facility] Last Admin: 09/17/17 10:44 Dose: 420 mls/hr Ondansetron HCl (Zofran Inj) 4 mg IVP Q4H PRN PRN Reason: Nausea/Vomiting Last Admin: 09/16/17 10:44 Dose: 4 mg - Labs Labs: 09/17/17 06:25 09/17/17 06:25 PT 12.9 SECONDS (9.7-12.2) H 09/17/17 06:25 INR 1.2 09/17/17 06:25 - Constitutional Appears: Non-toxic, No Acute Distress - Head Exam Head Exam: ATRAUMATIC, NORMOCEPHALIC - Eye Exam Eye Exam: EOMI, Normal appearance - ENT Exam ENT Exam: Mucous Membranes Moist - Respiratory Exam Respiratory Exam: Clear to Ausculation Bilateral, NORMAL BREATHING PATTERN. absent: Accessory Muscle Use, Rales, Rhonchi, Wheezes, Respiratory Distress - Cardiovascular Exam Cardiovascular Exam: REGULAR RHYTHM, +S1 - GI/Abdominal Exam GI & Abdominal Exam: Soft. absent: Distended, Firm, Guarding, Rigid, Tenderness - Extremities Exam Extremities Exam: absent: Calf Tenderness, Pedal Edema - Neurological Exam Neurological Exam: Alert, Awake, Oriented x3 - Psychiatric Exam Psychiatric exam: Normal Affect, Normal Mood - Skin Skin Exam: Dry, Warm Assessment and Plan - Assessment and Plan (Free Text) Plan: Neuro - oligodendroglioma partially resected in 2009 A&Ox3 Toxicology screen negative Dr. Ferguson consulted - recs appreciated Radiation oncology (Dr. Mcqueen) - recs appreciated Neurology consulted (Dr. Plascencia) - recs appreciated Possibility of transformation to GBM per Dr. Plascencia Heme/Onc consuled (Sukumar) - recs appreciated CT Head: 1. 2.8 x 2.1 cm round lesion with irregular enhancing rim in the left paramedian inferior frontal lobe with extensive surrounding vasogenic edema extending to the genu of the corpus callosum on the right with local mass effect on the right frontal horn and 6 mm midline shift from right to left with subfalcine herniation. The differential considerations include glioblastoma, metastasis and abscess. MRI of the brain without and with intravenous contrast is recommended for further characterization. 2. Cystic encephalomalacia and gliosis with dysmorphic calcifications in the left frontal lobe in keeping with postsurgical changes. Brain MRI: 1. 2.9 x 1.9 cm heterogeneously enhancing mass in the right paramedian frontal lobe with extensive vasogenic edema extending to the subcortical white matter and genu of corpus callosum on the right with subfalcine herniation and 8 mm midline shift from right to left. Findings are concerning for glioblastoma. The other differential considerations include lymphoma in an immunocompromised patient and metastasis. 2. 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 Additional discrete areas of enhancement in the posterior frontal subcortical white matter and concerning for recurrence/ transformation to high-grade glioma. Keppra 750 mg Q12 Dexamethasone 10 mg IV Q8 Hematology/Oncology H&H: 14.5/41.7 Plt: 224 Heme/Onc consuled (Sukumar) - recs appreciated Prophylaxis Pepcid 20 mg PO BID Dispo: Patient to be transferred to [facility] per Dr. Plascencia. Accepting physician is Dr. Vitor Saha. Patient will be transferred to have debulking and biopsy procedures performed and will remain in the hospital for neuro-surgical ICU care that is not available at [facility]. MRI and CT cd's have been copied and should be located in the patient's chart, ready for transfer. Case discussed with Dr. Nelda Lorenzo Julio PGY1
--- NOTE | 2017-09-18 11:44 | CP.PCM.PN ---
Subjective - Date & Time of Evaluation Date of Evaluation: 09/18/17 Time of Evaluation: 11:40 - Subjective Subjective: WILL DICTATE NOTE Dx; 2.9 CMS RIGHT PARAMEDIAN FRONTAL LOBE MASS. R/O GLIOBLASTOMA NEEDS TISSUE DIAGNOSIS H/O LEFT FRONTAL OLIGODENDROGLIOMA RESECTION. AUGUSTINA SHOWED NEW POATERIOR ACTIVITY. NEED TO RULE OUR RECURRENCE OF OLIGODENDROGLIOMA SUGGEST: AGREE WITH NONSURGICAL TEAM PLAN RADIATION THERAPY CONSULT FURTHER TREATMENT RECOMMENDATIONS BASED ON PATHOLOGY DISCUSSED WITH THE TEAM... Objective - Vital Signs/Intake and Output Vital Signs (last 24 hours): Temp Pulse Resp BP Pulse Ox 98.0 F 67 18 120/77 99 09/18/17 08:20 09/18/17 08:20 09/18/17 08:20 09/18/17 08:20 09/18/17 08:20 Intake and Output: 09/18/17 09/18/17 06:59 18:59 Intake Total 240 Balance 240 - Medications Medications: Current Medications Acetaminophen (Tylenol 325mg Tab) 650 mg PO Q6 PRN PRN Reason: Headache Last Admin: 09/18/17 08:06 Dose: 650 mg Dexamethasone (Decadron Inj) 10 mg IVP Q8 [facility] Last Admin: 09/18/17 05:37 Dose: 10 mg Famotidine (Pepcid) 20 mg PO BID [facility] Last Admin: 09/18/17 09:19 Dose: 20 mg Levetiracetam 750 mg/ Sodium (Chloride) 107.5 mls @ 420 mls/hr IVPB Q12 [facility] Last Admin: 09/18/17 09:19 Dose: 420 mls/hr Ondansetron HCl (Zofran Inj) 4 mg IVP Q4H PRN PRN Reason: Nausea/Vomiting Last Admin: 09/16/17 10:44 Dose: 4 mg - Labs Labs: 09/17/17 06:25 09/17/17 06:25 PT 12.9 SECONDS (9.7-12.2) H 09/17/17 06:25 INR 1.2 09/17/17 06:25
--- NOTE | 2017-09-18 11:56 | CP.PCM.PN ---
Addendum entered and electronically signed by Vince Melton 09/18/17 16:48: As a collaborative measure of the care team including oncology, primary team, neuro and neurosurgery, it has been decided that it is in the best interest of the patient to receive care with adequate support at [facility]. His transfer is in the works and being arranged by our systems. Original Note: <Vince Melton - Last Filed: 09/18/17 14:39> Subjective - Date & Time of Evaluation Date of Evaluation: 09/18/17 Time of Evaluation: 11:54 - Subjective Subjective: Progress note for Dr. Bose's Service Pt seen and examined at bedside. He is AAO x3. He states that he is doing well, tolerating PO intake. He is continuing to have right sided head pain but states that it is manageable. No acute events overnight as per nursing. Pt is awaiting transfer placement to [facility]. Objective - Vital Signs/Intake and Output Vital Signs (last 24 hours): Temp Pulse Resp BP Pulse Ox 98.0 F 67 18 120/77 99 09/18/17 08:20 09/18/17 08:20 09/18/17 08:20 09/18/17 08:20 09/18/17 08:20 Intake and Output: 09/18/17 09/18/17 06:59 18:59 Intake Total 240 Balance 240 - Medications Medications: Current Medications Acetaminophen (Tylenol 325mg Tab) 650 mg PO Q6 PRN PRN Reason: Headache Last Admin: 09/18/17 08:06 Dose: 650 mg Dexamethasone (Decadron Inj) 10 mg IVP Q8 [facility] Last Admin: 09/18/17 05:37 Dose: 10 mg Famotidine (Pepcid) 20 mg PO BID [facility]SE Last Admin: 09/18/17 09:19 Dose: 20 mg Levetiracetam 750 mg/ Sodium (Chloride) 107.5 mls @ 420 mls/hr IVPB Q12 [facility] Last Admin: 09/18/17 09:19 Dose: 420 mls/hr Ondansetron HCl (Zofran Inj) 4 mg IVP Q4H PRN PRN Reason: Nausea/Vomiting Last Admin: 09/16/17 10:44 Dose: 4 mg - Labs Labs: 09/17/17 06:25 09/17/17 06:25 PT 12.9 SECONDS (9.7-12.2) H 09/17/17 06:25 INR 1.2 09/17/17 06:25 - Constitutional Appears: No Acute Distress - Head Exam Head Exam: ATRAUMATIC, NORMAL INSPECTION - Eye Exam Eye Exam: EOMI - ENT Exam ENT Exam: Mucous Membranes Moist - Respiratory Exam Respiratory Exam: Clear to Ausculation Bilateral, NORMAL BREATHING PATTERN - Cardiovascular Exam Cardiovascular Exam: REGULAR RHYTHM, +S1, +S2 - GI/Abdominal Exam GI & Abdominal Exam: Soft. absent: Tenderness - Extremities Exam Extremities Exam: Normal Inspection - Neurological Exam Neurological Exam: Alert, Awake, Oriented x3 - Skin Skin Exam: Dry, Warm Assessment and Plan - Assessment and Plan (Free Text) Plan: Oligodendroglioma s/p partial resection in 2009 AAOx3 Toxicology screen negative Dr. Ferguson consulted - recs appreciated Radiation oncology (Dr. Mcqueen) - recs appreciated Neurology consulted (Dr. Plascencia) - recs appreciated Possibility of transformation to GBM per Dr. Plascencia Heme/Onc consuled (Sukumar) - recs appreciated CT Head: 1. 2.8 x 2.1 cm round lesion with irregular enhancing rim in the left paramedian inferior frontal lobe with extensive surrounding vasogenic edema extending to the genu of the corpus callosum on the right with local mass effect on the right frontal horn and 6 mm midline shift from right to left with subfalcine herniation. The differential considerations include glioblastoma, metastasis and abscess. MRI of the brain without and with intravenous contrast is recommended for further characterization. 2. Cystic encephalomalacia and gliosis with dysmorphic calcifications in the left frontal lobe in keeping with postsurgical changes. Brain MRI: 1. 2.9 x 1.9 cm heterogeneously enhancing mass in the right paramedian frontal lobe with extensive vasogenic edema extending to the subcortical white matter and genu of corpus callosum on the right with subfalcine herniation and 8 mm midline shift from right to left. Findings are concerning for glioblastoma. The other differential considerations include lymphoma in an immunocompromised patient and metastasis. 2. 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 Additional discrete areas of enhancement in the posterior frontal subcortical white matter and concerning for recurrence/ transformation to high-grade glioma. Keppra 750 mg Q12 Dexamethasone 10 mg IV Q8 Hematology/Oncology H&H: 14.5/41.7 Plt: 224 Heme/Onc consuled (Sukumar) - recs appreciated Prophylaxis Pepcid 20 mg PO BID Dispo: Patient to be transferred to [facility] per Dr. Plascencia. Accepting physician is Dr. Vitor Saha. Patient will be transferred to have debulking and biopsy procedures performed and will remain in the hospital for neuro-surgical ICU care that is not available at [facility] MRI and CT cd's have been copied and should be located in the patient's chart, ready for transfer. Case discussed with Dr. Lutz <Karan Lutz - Last Filed: 09/19/17 19:37> Objective - Vital Signs/Intake and Output Vital Signs (last 24 hours): Temp Pulse Resp BP Pulse Ox 98.4 F 80 20 123/75 98 09/19/17 16:19 09/19/17 16:19 09/19/17 16:19 09/19/17 16:19 09/19/17 16:19 - Medications Medications: Current Medications Acetaminophen (Tylenol 325mg Tab) 650 mg PO Q6 PRN PRN Reason: Headache Last Admin: 09/18/17 08:06 Dose: 650 mg Dexamethasone (Decadron Inj) 10 mg IVP Q8 [facility] Last Admin: 09/19/17 14:16 Dose: 10 mg Famotidine (Pepcid) 20 mg PO BID [facility]SE Last Admin: 09/19/17 17:11 Dose: 20 mg Levetiracetam 750 mg/ Sodium (Chloride) 107.5 mls @ 420 mls/hr IVPB Q12 [facility] Last Admin: 09/19/17 09:48 Dose: 420 mls/hr Ondansetron HCl (Zofran Inj) 4 mg IVP Q4H PRN PRN Reason: Nausea/Vomiting Last Admin: 09/16/17 10:44 Dose: 4 mg - Labs Labs: 09/19/17 08:24 09/19/17 08:24 PT 12.9 SECONDS (9.7-12.2) H 09/17/17 06:25 INR 1.2 09/17/17 06:25 Attending/Attestation - Attestation I have personally seen and examined this patient.: Yes I have fully participated in the care of the patient.: Yes I have reviewed all pertinent clinical information, including history, physical exam and plan: Yes Notes (Text): Arminda was seen and examined.d/w the resident.He will be transferred to [facility] .Accepting physician is DR Vitor Saha I agree with the resident's documentation of the assessment and the plan
--- NOTE | 2017-09-18 12:58 | CP.PCM.PN ---
Subjective - Date & Time of Evaluation Date of Evaluation: 09/18/17 Time of Evaluation: 12:56 - Subjective Subjective: Case discussed with attending yesterday evening She discussed treatment plan with other specialists who are involved They feel that patient will be best served if he were transferred to [facility] In light of this I will cancel surgery for Wednesday Objective - Vital Signs/Intake and Output Vital Signs (last 24 hours): Temp Pulse Resp BP Pulse Ox 98.0 F 67 18 120/77 99 09/18/17 08:20 09/18/17 08:20 09/18/17 08:20 09/18/17 08:20 09/18/17 08:20 Intake and Output: 09/18/17 09/18/17 06:59 18:59 Intake Total 240 Balance 240 - Medications Medications: Current Medications Acetaminophen (Tylenol 325mg Tab) 650 mg PO Q6 PRN PRN Reason: Headache Last Admin: 09/18/17 08:06 Dose: 650 mg Dexamethasone (Decadron Inj) 10 mg IVP Q8 [facility] Last Admin: 09/18/17 05:37 Dose: 10 mg Famotidine (Pepcid) 20 mg PO BID [facility]SE Last Admin: 09/18/17 09:19 Dose: 20 mg Levetiracetam 750 mg/ Sodium (Chloride) 107.5 mls @ 420 mls/hr IVPB Q12 [facility] Last Admin: 09/18/17 09:19 Dose: 420 mls/hr Ondansetron HCl (Zofran Inj) 4 mg IVP Q4H PRN PRN Reason: Nausea/Vomiting Last Admin: 09/16/17 10:44 Dose: 4 mg - Labs Labs: 09/17/17 06:25 09/17/17 06:25 PT 12.9 SECONDS (9.7-12.2) H 09/17/17 06:25 INR 1.2 09/17/17 06:25
[2017-09-18 17:46] VITALS: RESP 20
[2017-09-19 08:54] LABS: BASO % 0.1 % (0.0-2.0); HEMATOCRIT 41.3 % (35.0-51.0); LYMPH # 0.8 K/uL (1.0-4.3); LYMPH % 6.1 % (20.0-40.0); MEAN CELL VOLUME 92.7 fL (80.0-94.0); MEAN CORPUSCULAR HEMOGLOBIN 31.8 pg (27.0-31.0); MEAN CORPUSCULAR HGB CONC 34.3 g/dL (33.0-37.0); MEAN PLATELET VOLUME 10.3 fL (7.2-11.7); MONO # 0.6 K/uL (0.0-0.8); MONO % 4.4 % (0.0-10.0); NRBC % 0.1 % (0.0-2.0); PLATELET COUNT 244 K/uL (130-400); RED CELL DISTRIBUTION WIDTH 13.3 % (11.5-14.5); WHITE BLOOD COUNT 12.9 K/uL (4.8-10.8)
[2017-09-19 09:14] LABS: ALB/GLOB RATIO 1.3 (1.0-2.1); ALKALINE PHOSPHATASE 42 U/L (38-126); ALT/SGPT 19 U/L (21-72); AST/SGOT 14 U/L (17-59); BILIRUBIN,TOTAL 0.5 mg/dL (0.2-1.3); BLOOD UREA NITROGEN 21 mg/dL (9-20); CALCIUM 8.3 mg/dl (8.6-10.4); CARBON DIOXIDE 26 mmol/L (22-30); CHLORIDE 102 mmol/L (98-107); GFR AFRICAN-AMERICAN > 60; GLUCOSE,RANDOM 121 mg/dL (75-110); POTASSIUM 4.1 mmol/L (3.6-5.2); SODIUM 136 mmol/L (132-148); TOTAL PROTEIN 6.1 g/dL (6.3-8.3)
--- NOTE | 2017-09-19 10:29 | CP.PCM.PN ---
<Vince Melton - Last Filed: 09/19/17 10:25> Subjective - Date & Time of Evaluation Date of Evaluation: 09/19/17 Time of Evaluation: 10:25 - Subjective Subjective: Progress note for Dr. Bose's Service Pt seen and examined at bedside. He is AAO x3. He states that he is doing well this morning. He is states that his headache is not present today. No acute events overnight as per nursing. Pt is awaiting transfer placement to [facility]. Objective - Vital Signs/Intake and Output Vital Signs (last 24 hours): Temp Pulse Resp BP Pulse Ox 98.2 F 54 L 20 112/67 97 09/18/17 23:00 09/19/17 04:12 09/18/17 23:00 09/18/17 23:00 09/18/17 23:00 - Medications Medications: Current Medications Acetaminophen (Tylenol 325mg Tab) 650 mg PO Q6 PRN PRN Reason: Headache Last Admin: 09/18/17 08:06 Dose: 650 mg Dexamethasone (Decadron Inj) 10 mg IVP Q8 [facility] Last Admin: 09/19/17 06:41 Dose: 10 mg Famotidine (Pepcid) 20 mg PO BID [facility] Last Admin: 09/19/17 09:49 Dose: 20 mg Levetiracetam 750 mg/ Sodium (Chloride) 107.5 mls @ 420 mls/hr IVPB Q12 [facility] Last Admin: 09/19/17 09:48 Dose: 420 mls/hr Ondansetron HCl (Zofran Inj) 4 mg IVP Q4H PRN PRN Reason: Nausea/Vomiting Last Admin: 09/16/17 10:44 Dose: 4 mg - Labs Labs: 09/19/17 08:24 09/19/17 08:24 PT 12.9 SECONDS (9.7-12.2) H 09/17/17 06:25 INR 1.2 09/17/17 06:25 - Head Exam Head Exam: ATRAUMATIC, NORMAL INSPECTION - Eye Exam Eye Exam: EOMI, Normal appearance - ENT Exam ENT Exam: Mucous Membranes Moist - Respiratory Exam Respiratory Exam: Clear to Ausculation Bilateral, NORMAL BREATHING PATTERN - Cardiovascular Exam Cardiovascular Exam: REGULAR RHYTHM, +S1, +S2 - GI/Abdominal Exam GI & Abdominal Exam: Soft. 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 Ferguson consulted - recs appreciated Radiation oncology (Dr. Mcqueen) - recs appreciated Neurology consulted (Dr. Plascencia) - recs appreciated Possibility of transformation to GBM per Dr. Plascencia Heme/Onc consuled (Dr. Patino) - recs appreciated CT Head: 1. 2.8 x 2.1 cm round lesion with irregular enhancing rim in the left paramedian inferior frontal lobe with extensive surrounding vasogenic edema extending to the genu of the corpus callosum on the right with local mass effect on the right frontal horn and 6 mm midline shift from right to left with subfalcine herniation. The differential considerations include glioblastoma, metastasis and abscess. MRI of the brain without and with intravenous contrast is recommended for further characterization. 2. Cystic encephalomalacia and gliosis with dysmorphic calcifications in the left frontal lobe in keeping with postsurgical changes. Brain MRI: 1. 2.9 x 1.9 cm heterogeneously enhancing mass in the right paramedian frontal lobe with extensive vasogenic edema extending to the subcortical white matter and genu of corpus callosum on the right with subfalcine herniation and 8 mm midline shift from right to left. Findings are concerning for glioblastoma. The other differential considerations include lymphoma in an immunocompromised patient and metastasis. 2. 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 Additional discrete areas of enhancement in the posterior frontal subcortical white matter and concerning for recurrence/ transformation to high-grade glioma. Keppra 750 mg Q12 Dexamethasone 10 mg IV Q8 Hematology/Oncology H&H: 14.5/41.7 Plt: 224 Heme/Onc consuled (Sukumar) - recs appreciated Prophylaxis Pepcid 20 mg PO BID Zofran Tylenol As a collaborative measure of the care team including oncology, primary team, neuro and neurosurgery, it has been decided that it is in the best interest of the patient to receive care with adequate support at [facility]. His transfer is in the works and being arranged by our systems. Accepting physician is Dr. Vitor Saha. Patient will be transferred to have debulking and biopsy procedures performed and will remain in the hospital for neuro-surgical ICU care that is not available at [facility]. MRI and CT cd's have been copied and should be located in the patient's chart, ready for transfer. Patient is working to arrange transfer or remaining medical documents from [place]. case discussed with Dr. Lutz <Karan Lutz - Last Filed: 09/19/17 19:39> Objective - Vital Signs/Intake and Output Vital Signs (last 24 hours): Temp Pulse Resp BP Pulse Ox 98.4 F 80 20 123/75 98 09/19/17 16:19 09/19/17 16:19 09/19/17 16:19 09/19/17 16:19 09/19/17 16:19 - Medications Medications: Current Medications Acetaminophen (Tylenol 325mg Tab) 650 mg PO Q6 PRN PRN Reason: Headache Last Admin: 09/18/17 08:06 Dose: 650 mg Dexamethasone (Decadron Inj) 10 mg IVP Q8 [facility] Last Admin: 09/19/17 14:16 Dose: 10 mg Famotidine (Pepcid) 20 mg PO BID [facility] Last Admin: 09/19/17 17:11 Dose: 20 mg Levetiracetam 750 mg/ Sodium (Chloride) 107.5 mls @ 420 mls/hr IVPB Q12 [facility] Last Admin: 09/19/17 09:48 Dose: 420 mls/hr Ondansetron HCl (Zofran Inj) 4 mg IVP Q4H PRN PRN Reason: Nausea/Vomiting Last Admin: 09/16/17 10:44 Dose: 4 mg - Labs Labs: 09/19/17 08:24 09/19/17 08:24 PT 12.9 SECONDS (9.7-12.2) H 09/17/17 06:25 INR 1.2 09/17/17 06:25 Attending/Attestation - Attestation I have personally seen and examined this patient.: Yes I have fully participated in the care of the patient.: Yes I have reviewed all pertinent clinical information, including history, physical exam and plan: Yes Notes (Text): Case discussed with the resident. I agree with the resident's documentation of the assessment and the plan
[2017-09-19 10:44] LABS: NEUTROPHIL 89 % (50-75); TOTAL CELLS COUNTED 100
--- NOTE | 2017-09-20 12:45 | CP.PCM.PN ---
Subjective - Date & Time of Evaluation Date of Evaluation: 09/20/17 Time of Evaluation: 12:19 - Subjective Subjective: PGY1 Medicine Note for Dr. Lanier Patient seen and examined at bedside this morning. Patient is awake and alert resting comfortably in bed. He has his girlfriend at bedside. Patient is in good spirits waiting transfer to [facility]. He denies any pressure in his head, vision changes, nausea or vomiting. He denies any complaints at this time and states he feels well. Objective - Vital Signs/Intake and Output Vital Signs (last 24 hours): Temp Pulse Resp BP Pulse Ox 97.9 F 58 L 20 115/72 95 09/20/17 08:00 09/20/17 08:52 09/20/17 08:00 09/20/17 08:00 09/20/17 08:00 Intake and Output: 09/20/17 09/20/17 06:59 18:59 Intake Total 30 Output Total 0 Balance 30 - Medications Medications: Current Medications Acetaminophen (Tylenol 325mg Tab) 650 mg PO Q6 PRN PRN Reason: Headache Last Admin: 09/20/17 05:42 Dose: 650 mg Dexamethasone (Decadron Inj) 10 mg IVP Q8 [facility] Last Admin: 09/20/17 05:43 Dose: 10 mg Famotidine (Pepcid) 20 mg PO BID [facility] Last Admin: 09/20/17 09:29 Dose: 20 mg Levetiracetam 750 mg/ Sodium (Chloride) 107.5 mls @ 420 mls/hr IVPB Q12 [facility] Last Admin: 09/20/17 09:29 Dose: 420 mls/hr Ondansetron HCl (Zofran Inj) 4 mg IVP Q4H PRN PRN Reason: Nausea/Vomiting Last Admin: 09/16/17 10:44 Dose: 4 mg - Labs Labs: 09/19/17 08:24 09/19/17 08:24 PT 12.9 SECONDS (9.7-12.2) H 09/17/17 06:25 INR 1.2 09/17/17 06:25 - Constitutional Appears: Non-toxic, No Acute Distress - Head Exam Head Exam: ATRAUMATIC, NORMOCEPHALIC - Eye Exam Eye Exam: EOMI, Normal appearance - ENT Exam ENT Exam: Mucous Membranes Moist - Respiratory Exam Respiratory Exam: NORMAL BREATHING PATTERN. absent: Accessory Muscle Use, Respiratory Distress - Cardiovascular Exam Cardiovascular Exam: REGULAR RHYTHM - GI/Abdominal Exam GI & Abdominal Exam: Soft. absent: Distended, Firm, Guarding, Rigid, Tenderness - Extremities Exam Extremities Exam: absent: Calf Tenderness, Pedal Edema - Neurological Exam Neurological Exam: Alert, Awake, Oriented x3 - Psychiatric Exam Psychiatric exam: Normal Affect, Normal Mood - Skin Skin Exam: Dry, Warm Assessment and Plan - Assessment and Plan (Free Text) Plan: Neuro - oligodendroglioma partially resected in 2009 A&Ox3 Toxicology screen negative Dr. Ferguson consulted - recs appreciated Radiation oncology (Dr. Mcqueen) - recs appreciated Neurology consulted (Dr. Plascencia) - recs appreciated Possibility of transformation to GBM per Dr. Plascencia Heme/Onc consuled ([facility]) - recs appreciated CT Head: 1. 2.8 x 2.1 cm round lesion with irregular enhancing rim in the left paramedian inferior frontal lobe with extensive surrounding vasogenic edema extending to the genu of the corpus callosum on the right with local mass effect on the right frontal horn and 6 mm midline shift from right to left with subfalcine herniation. The differential considerations include glioblastoma, metastasis and abscess. MRI of the brain without and with intravenous contrast is recommended for further characterization. 2. Cystic encephalomalacia and gliosis with dysmorphic calcifications in the left frontal lobe in keeping with postsurgical changes. Brain MRI: 1. 2.9 x 1.9 cm heterogeneously enhancing mass in the right paramedian frontal lobe with extensive vasogenic edema extending to the subcortical white matter and genu of corpus callosum on the right with subfalcine herniation and 8 mm midline shift from right to left. Findings are concerning for glioblastoma. The other differential considerations include lymphoma in an immunocompromised patient and metastasis. 2. 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 Additional discrete areas of enhancement in the posterior frontal subcortical white matter and concerning for recurrence/ transformation to high-grade glioma. Keppra 750 mg Q12 Dexamethasone 10 mg IV Q8 Hematology/Oncology H&H: 14.5/41.7 Plt: 224 Heme/Onc consuled (Sukumar) - recs appreciated Prophylaxis Pepcid 20 mg PO BID Dispo: Patient to be transferred to [facility] per Dr. Plascencia. Accepting physician is Dr. Vitor Saha. Patient will be transferred to have debulking and biopsy procedures performed and will remain in the hospital for neuro-surgical ICU care that is not available at [facility]. MRI and CT cd's have been copied and should be located in the patient's chart, ready for transfer. No new update at this time. Case discussed with Dr. Lanier. Bj Kim PGY1
[2017-09-21 06:48] LABS: INR 1.1
[2017-09-21 07:42] VITALS: O2SAT 97
--- NOTE | 2017-09-21 15:19 | CP.PCM.PN ---
<Bj Kim - Last Filed: 09/21/17 15:16> Subjective - Date & Time of Evaluation Date of Evaluation: 09/21/17 Time of Evaluation: 07:16 - Subjective Subjective: PGY1 Medicine Note for Dr. Cedeño Patient seen and examined at bedside this morning. Patient is awake watching television and in good spirits. He was informed that he is still awaiting a bed to transfer him to [facility]. He understands and is very appreciative of all of the help he has received while he has been here. He reports he has some right sided vision floaters throughout the night and mild nausea but he is feeling better now. He does not have any current symptoms at this time. Objective - Vital Signs/Intake and Output Vital Signs (last 24 hours): Temp Pulse Resp BP Pulse Ox 97.9 F 57 L 20 132/81 97 09/21/17 07:40 09/21/17 07:40 09/21/17 07:40 09/21/17 07:40 09/21/17 07:40 Intake and Output: 09/21/17 09/21/17 06:59 18:59 Intake Total 100 Output Total 250 Balance -150 - Medications Medications: Current Medications Acetaminophen (Tylenol 325mg Tab) 650 mg PO Q6 PRN PRN Reason: Headache Last Admin: 09/20/17 05:42 Dose: 650 mg Dexamethasone (Decadron Inj) 10 mg IVP Q8 [facility] Last Admin: 09/21/17 13:40 Dose: 10 mg Famotidine (Pepcid) 20 mg PO BID [facility] Last Admin: 09/21/17 09:25 Dose: 20 mg Levetiracetam 750 mg/ Sodium (Chloride) 107.5 mls @ 420 mls/hr IVPB Q12 [facility] Last Admin: 09/21/17 09:25 Dose: 420 mls/hr Ondansetron HCl (Zofran Inj) 4 mg IVP Q6H PRN PRN Reason: Nausea/Vomiting - Labs Labs: 09/19/17 08:24 09/19/17 08:24 PT 11.8 SECONDS (9.7-12.2) 09/21/17 06:17 INR 1.1 09/21/17 06:17 APTT 26 SECONDS (21-34) 09/21/17 06:17 - Constitutional Appears: Non-toxic, No Acute Distress - Head Exam Head Exam: ATRAUMATIC, NORMOCEPHALIC - Eye Exam Eye Exam: EOMI, Normal appearance, PERRL - ENT Exam ENT Exam: Mucous Membranes Moist - Respiratory Exam Respiratory Exam: Clear to Ausculation Bilateral, NORMAL BREATHING PATTERN. absent: Accessory Muscle Use, Rales, Rhonchi, Wheezes, Respiratory Distress - Cardiovascular Exam Cardiovascular Exam: REGULAR RHYTHM, +S1, +S2 - GI/Abdominal Exam GI & Abdominal Exam: Soft, Normal Bowel Sounds. absent: Distended, Firm, Guarding, Rigid, Tenderness - Extremities Exam Extremities Exam: Normal Inspection. absent: Calf Tenderness, Pedal Edema - Neurological Exam Neurological Exam: Alert, Awake, CN II-XII Intact, Oriented x3. absent: Motor Sensory Deficit - Psychiatric Exam Psychiatric exam: Normal Affect, Normal Mood - Skin Skin Exam: Dry, Warm Assessment and Plan - Assessment and Plan (Free Text) Plan: Neuro: Oligodendroglioma partially resected in 2009 (in [place]) A&Ox3 Toxicology screen negative Dr. Ferguson consulted - recs appreciated Radiation oncology (Dr. Mcqueen) - recs appreciated Neurology consulted (Dr. Plascencia) - recs appreciated Possibility of transformation to GBM per Dr. Plascencia Heme/Onc consuled ([facility]) - recs appreciated CT Head: 1. 2.8 x 2.1 cm round lesion with irregular enhancing rim in the left paramedian inferior frontal lobe with extensive surrounding vasogenic edema extending to the genu of the corpus callosum on the right with local mass effect on the right frontal horn and 6 mm midline shift from right to left with subfalcine herniation. The differential considerations include glioblastoma, metastasis and abscess. MRI of the brain without and with intravenous contrast is recommended for further characterization. 2. Cystic encephalomalacia and gliosis with dysmorphic calcifications in the left frontal lobe in keeping with postsurgical changes. Brain MRI: 1. 2.9 x 1.9 cm heterogeneously enhancing mass in the right paramedian frontal lobe with extensive vasogenic edema extending to the subcortical white matter and genu of corpus callosum on the right with subfalcine herniation and 8 mm midline shift from right to left. Findings are concerning for glioblastoma. The other differential considerations include lymphoma in an immunocompromised patient and metastasis. 2. 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 Additional discrete areas of enhancement in the posterior frontal subcortical white matter and concerning for recurrence/ transformation to high-grade glioma. Keppra 750 mg Q12 Dexamethasone 10 mg IV Q8 Hematology/Oncology H&H: 14.5/41.7 Plt: 224 Heme/Onc consuled (Sukumar) - recs appreciated Prophylaxis Pepcid 20 mg PO BID Dispo: Patient to be transferred to [facility] per Dr. Plascencia. Accepting physician is Dr. Vitor Saha. Patient will be transferred to have debulking and biopsy procedures performed and will remain in the hospital for neuro-surgical ICU care that is not available at [facility]. MRI and CT cd's have been copied and should be located in the patient's chart, ready for transfer. Patient is awaiting a bed to transfer into. No new update at this time. Case discussed with Dr. Gala Lorenzo Julio PGY1 <Hubert Cedeño - Last Filed: 09/21/17 15:49> Objective - Vital Signs/Intake and Output Vital Signs (last 24 hours): Temp Pulse Resp BP Pulse Ox 98.1 F 65 20 125/79 97 09/21/17 15:45 09/21/17 15:45 09/21/17 15:45 09/21/17 15:45 09/21/17 15:45 Intake and Output: 09/21/17 09/21/17 06:59 18:59 Intake Total 100 Output Total 250 Balance -150 - Medications Medications: Current Medications Acetaminophen (Tylenol 325mg Tab) 650 mg PO Q6 PRN PRN Reason: Headache Last Admin: 09/20/17 05:42 Dose: 650 mg Dexamethasone (Decadron Inj) 10 mg IVP Q8 [facility] Last Admin: 09/21/17 13:40 Dose: 10 mg Famotidine (Pepcid) 20 mg PO BID [facility] Last Admin: 09/21/17 09:25 Dose: 20 mg Levetiracetam 750 mg/ Sodium (Chloride) 107.5 mls @ 420 mls/hr IVPB Q12 [facility] Last Admin: 09/21/17 09:25 Dose: 420 mls/hr Ondansetron HCl (Zofran Inj) 4 mg IVP Q6H PRN PRN Reason: Nausea/Vomiting - Labs Labs: 09/19/17 08:24 09/19/17 08:24 PT 11.8 SECONDS (9.7-12.2) 09/21/17 06:17 INR 1.1 09/21/17 06:17 APTT 26 SECONDS (21-34) 09/21/17 06:17 Attending/Attestation - Attestation I have personally seen and examined this patient.: Yes I have fully participated in the care of the patient.: Yes I have reviewed all pertinent clinical information, including history, physical exam and plan: Yes Notes (Text): 09/21/17 15:49 Medical attending: Patient was seen and examined by me, reviewed the above note by medical legal investigator and agree. Cystoscopy very pleasant 42-year-old male who unfortunately has a history of oligodendroglioma that was diagnosed and resected in his home country of [place]. Unfortunately were not able to acquire the records for this. When he came here he had a CT scan of the head done which showed a 2.8 x 2 cm round lesion in the left frontal lobe and is noted that there was extensive edema around this area. The also reported that there was some mass effect as well affecting this area. He's been placed on IV Decadron which we are continuing. And also he's been placed on IV Keppra for potential seizure prophylaxis. From my discussion with the residents who've been seeing the patient with the weekend, the patient appears to be quite stable. When I spoke with him he had a very benign exam. He denied vision changes, denied numbness or tingling, denied having any weakness in his extremities. He's going to and from the bathroom okay as well. At this moment were pending on the transfer over to [facility] so he could have a biopsy and debulking of this mass done. Thank you very much, Hubert Cedeño
[2017-09-21 15:46] VITALS: BP 125/79; TEMP 98.1
[2017-09-21 15:53] VITALS: PULSE 100
--- NOTE | 2017-09-21 22:16 | CARD ---
APPROVED REPORT EKG Measurement Heart [id number] <Conclusion> Sinus bradycardia Otherwise normal ECG
--- NOTE | 2017-09-22 12:55 | CP.PCM.DIS ---
<Bj Kim - Last Filed: 09/22/17 12:48> Provider - Provider Date of Admission: 09/15/17 18:52 Attending physician: Hubert Cedeño DO Consults: Neuro Surg - Marty Neuro - Temo Heme/Onc - Sukumar Rad/Onc - Bre Mcqueen Critical Care - [facility] Time Spent in preparation of Discharge (in minutes): 90 Hospital Course - Lab Results Lab Results: Micro Results 09/16/17 21:55 Nose MRSA Culture - Final MRSA NOT DETECTED 09/15/17 Unknown Nose MRSA Culture (Admit) - Final MRSA NOT DETECTED Most Recent Lab Values WBC 12.9 K/uL (4.8-10.8) H 09/19/17 08:24 RBC 4.45 Mil/uL (4.40-5.90) 09/19/17 08:24 Hgb 14.1 g/dL (12.0-18.0) 09/19/17 08:24 Hct 41.3 % (35.0-51.0) 09/19/17 08:24 MCV 92.7 fL (80.0-94.0) 09/19/17 08:24 MCH 31.8 pg (27.0-31.0) H 09/19/17 08:24 MCHC 34.3 g/dL (33.0-37.0) 09/19/17 08:24 RDW 13.3 % (11.5-14.5) 09/19/17 08:24 Plt Count 244 K/uL (130-400) 09/19/17 08:24 MPV 10.3 fL (7.2-11.7) 09/19/17 08:24 Neut % (Auto) 89.4 % (50.0-75.0) H 09/19/17 08:24 Lymph % (Auto) 6.1 % (20.0-40.0) L 09/19/17 08:24 Burt % (Auto) 4.4 % (0.0-10.0) 09/19/17 08:24 Eos % (Auto) 0.0 % (0.0-4.0) 09/19/17 08:24 Baso % (Auto) 0.1 % (0.0-2.0) 09/19/17 08:24 Neut # 11.6 K/uL (1.8-7.0) H 09/19/17 08:24 Lymph # 0.8 K/uL (1.0-4.3) L 09/19/17 08:24 Burt # 0.6 K/uL (0.0-0.8) 09/19/17 08:24 Eos # 0.0 K/uL (0.0-0.7) 09/19/17 08:24 Baso # 0.0 K/uL (0.0-0.2) 09/19/17 08:24 Neutrophils % (Manual) 89 % (50-75) H 09/19/17 08:24 Band Neutrophils % 1 % (0-2) 09/19/17 08:24 Lymphocytes % (Manual) 9 % (20-40) L 09/19/17 08:24 Monocytes % (Manual) 1 % (0-10) 09/19/17 08:24 Platelet Estimate Normal (NORMAL) 09/19/17 08:24 RBC Morphology Normal 09/19/17 08:24 PT 11.8 SECONDS (9.7-12.2) 09/21/17 06:17 INR 1.1 09/21/17 06:17 APTT 26 SECONDS (21-34) 09/21/17 06:17 Sodium 136 mmol/L (132-148) 09/19/17 08:24 Potassium 4.1 mmol/L (3.6-5.2) 09/19/17 08:24 Chloride 102 mmol/L (98-107) 09/19/17 08:24 Carbon Dioxide 26 mmol/L (22-30) 09/19/17 08:24 Anion Gap 13 (10-20) 09/19/17 08:24 BUN 21 mg/dL (9-20) H 09/19/17 08:24 Creatinine 0.8 mg/dL (0.8-1.5) 09/19/17 08:24 Est GFR ( Amer) > 60 09/19/17 08:24 Est GFR (Non-Af Amer) > 60 09/19/17 08:24 POC Glucose (mg/dL) 112 mg/dL (65-110) H 09/21/17 16:15 Random Glucose 121 mg/dL (75-110) H 09/19/17 08:24 Hemoglobin A1c 5.5 % (4.2-6.5) 09/17/17 06:25 Calcium 8.3 mg/dl (8.6-10.4) L 09/19/17 08:24 Phosphorus 4.2 mg/dL (2.5-4.5) 09/17/17 06:25 Magnesium 2.1 mg/dL (1.6-2.3) 09/17/17 06:25 Total Bilirubin 0.5 mg/dL (0.2-1.3) 09/19/17 08:24 AST 14 U/L (17-59) L 09/19/17 08:24 ALT 19 U/L (21-72) L D 09/19/17 08:24 Alkaline Phosphatase 42 U/L (38-126) 09/19/17 08:24 Total Protein 6.1 g/dL (6.3-8.3) L 09/19/17 08:24 Albumin 3.5 g/dL (3.5-5.0) 09/19/17 08:24 Globulin 2.7 gm/dL (2.2-3.9) 09/19/17 08:24 Albumin/Globulin Ratio 1.3 (1.0-2.1) 09/19/17 08:24 TSH 3rd Generation 0.51 mIU/L (0.46-4.68) 09/17/17 06:25 Urine Color Yellow (YELLOW) 09/15/17 15:06 Urine Clarity Hazy (Clear) 09/15/17 15:06 Urine pH 6.0 (5.0-8.0) 09/15/17 15:06 Ur Specific [place] 1.021 (1.003-1.030) 09/15/17 15:06 Urine Protein Negative mg/dL (NEGATIVE) 09/15/17 15:06 Urine Glucose (UA) Normal mg/dL (Normal) 09/15/17 15:06 Urine Ketones Negative mg/dL (NEGATIVE) 09/15/17 15:06 Urine Blood Negative (NEGATIVE) 09/15/17 15:06 Urine Nitrate Negative (NEGATIVE) 09/15/17 15:06 Urine Bilirubin Negative (NEGATIVE) 09/15/17 15:06 Urine Urobilinogen Normal mg/dL (0.2-1.0) 09/15/17 15:06 Ur Leukocyte Esterase Neg Samantha/uL (Negative) 09/15/17 15:06 Urine WBC (Auto) 1 /hpf (0-5) 09/15/17 15:06 Urine RBC (Auto) 2 /hpf (0-3) 09/15/17 15:06 Ur Squamous Epith Cells < 1 /hpf (0-5) 09/15/17 15:06 Amorphous Sediment Rare /ul (<OCC) H 09/15/17 15:06 Urine Opiates Screen Negative (NEGATIVE) 09/15/17 15:06 Urine Methadone Screen Negative (NEGATIVE) 09/15/17 15:06 Ur Barbiturates Screen Negative (NEGATIVE) 09/15/17 15:06 Ur Phencyclidine Scrn Negative (NEGATIVE) 09/15/17 15:06 Ur Amphetamines Screen Negative (NEGATIVE) 09/15/17 15:06 U Benzodiazepines Scrn Negative (NEGATIVE) 09/15/17 15:06 U Oth Cocaine Metabols Negative (NEGATIVE) 09/15/17 15:06 U Cannabinoids Screen Negative (NEGATIVE) 09/15/17 15:06 Alcohol, Quantitative < 10 mg/dl (0-10) 09/15/17 15:06 HIV 1&2 Antibody Screen Negative (NEGATIVE) 09/17/17 06:25 Influenza Typ A,B (EIA) Negative for flu a/b (NEGATIVE) 09/15/17 15:15 - Hospital Course Hospital Course: as per admission documentation Patient is a 42M with a 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 He describes the pressure as someone pressing on his ears. It when he was working and has progressively became worse. He ois also complaining of nausea approx 1 time per day but no vomiting. Now he is unable to sleep and the he since Wednesday the episodes of nausea have become worse. The partial resection was done in [place] in 2009. Patient states that the surgeon did not want to do more for fear of injury to his health brain tissue. He then received brain radiation with instructions to follow up for CT scans with contrast. He was compliant with his follow up. [facility] the care of Dr. Shukla. He also had the patient go for CT scans to monitor the mass. After the most recent CT scan Dr. Shukla told the patient to come to the ED. Patient is also complaining of a single occurrence of "pixilated" vision 3 weeks ago. Patient does have a history of seizures, but the last seizure was 6-7 years ago. Denies any numbness or weakness. Hospital Course Patient was admitted on 09/15 for a Brain Mass with feeling of pressure in his head. 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 Ferguson consulted - recs appreciated Radiation oncology (Dr. Mcqueen) - recs appreciated Neurology consulted (Dr. Plascencia) - recs appreciated Possibility of transformation to GBM per Dr. Plascencia Heme/Onc consuled ([facility]) - recs appreciated CT Head: 1. 2.8 x 2.1 cm round lesion with irregular enhancing rim in the left paramedian inferior frontal lobe with extensive surrounding vasogenic edema extending to the genu of the corpus callosum on the right with local mass effect on the right frontal horn and 6 mm midline shift from right to left with subfalcine herniation. The differential considerations include glioblastoma, metastasis and abscess. MRI of the brain without and with intravenous contrast is recommended for further characterization. 2. Cystic encephalomalacia and gliosis with dysmorphic calcifications in the left frontal lobe in keeping with postsurgical changes. Brain MRI: 1. 2.9 x 1.9 cm heterogeneously enhancing mass in the right paramedian frontal lobe with extensive vasogenic edema extending to the subcortical white matter and genu of corpus callosum on the right with subfalcine herniation and 8 mm midline shift from right to left. Findings are concerning for glioblastoma. The other differential considerations include lymphoma in an immunocompromised patient and metastasis. 2. 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 Additional discrete areas of enhancement in the posterior frontal subcortical white matter and concerning for recurrence/ transformation to high-grade glioma. Keppra 750 mg Q12 Dexamethasone 10 mg IV Q8 Hematology/Oncology H&H: 14.5/41.7 Plt: 224 Heme/Onc consuled ([facility]) - recs appreciated Prophylaxis Pepcid 20 mg PO BID Patient was stable throughout his hospital stay. No acute events. He transferred to [facility] on 09/21/17. Accepting physician is Dr. Vitor Saha. Patient was transferred to have debulking and biopsy procedures performed and will remain in the hospital for neuro-surgical ICU care that is not available at [facility]. MRI and CT cd's have been copied and should be located in the patient's chart. This is just a brief summary of the patient's hospital stay. For complete detail of events, please see EMR. Bj Kim PGY1 Discharge Exam - Head Exam Head Exam: ATRAUMATIC, NORMOCEPHALIC - Eye Exam Eye Exam: EOMI, Normal appearance, PERRL Pupil Exam: NORMAL ACCOMODATION - ENT Exam ENT Exam: Mucous Membranes Moist - Neck Exam Neck exam: Full Rom - Respiratory Exam Respiratory Exam: Clear to PA & Lateral, NORMAL BREATHING PATTERN, UNREMARKABLE. absent: Accessory Muscle Use, Rales, Rhonchi, Wheezes, Respiratory Distress - Cardiovascular Exam Cardiovascular Exam: REGULAR RHYTHM, +S1 - GI/Abdominal Exam GI & Abdominal Exam: Normal Bowel Sounds, Soft, Unremarkable. absent: Distended , Firm, Guarding, Hernia, Rigid, Tenderness - Extremities Exam Extremities exam: normal inspection, pedal pulses present - Neurological Exam Neurological exam: Alert, CN II-XII Intact, Normal Gait, Oriented x3 - Psychiatric Exam Psychiatric exam: Normal Affect, Normal Mood - Skin Skin Exam: Dry, Warm Discharge Plan - Follow Up Plan Condition: GUARDED Disposition: Trans to Other Acute Care Hosp Instructions: Acute Abdominal Pain (DC), Acute Abdominal Pain (GEN) Additional Instructions: Patient is to be transferred to [facility] per Dr. Lutz. The accepting physician is Dr. Vitor Saha. Patient is being transferred <Hubert Cedeño - Last Filed: 09/22/17 15:07> Provider - Provider Date of Admission: 09/15/17 18:52 Attending physician: Hubert Cedeño DO Hospital Course - Lab Results Lab Results: Micro Results 09/16/17 21:55 Nose MRSA Culture - Final MRSA NOT DETECTED 09/15/17 Unknown Nose MRSA Culture (Admit) - Final MRSA NOT DETECTED Most Recent Lab Values WBC 12.9 K/uL (4.8-10.8) H 09/19/17 08:24 RBC 4.45 Mil/uL (4.40-5.90) 09/19/17 08:24 Hgb 14.1 g/dL (12.0-18.0) 09/19/17 08:24 Hct 41.3 % (35.0-51.0) 09/19/17 08:24 MCV 92.7 fL (80.0-94.0) 09/19/17 08:24 MCH 31.8 pg (27.0-31.0) H 09/19/17 08:24 MCHC 34.3 g/dL (33.0-37.0) 09/19/17 08:24 RDW 13.3 % (11.5-14.5) 09/19/17 08:24 Plt Count 244 K/uL (130-400) 09/19/17 08:24 MPV 10.3 fL (7.2-11.7) 09/19/17 08:24 Neut % (Auto) 89.4 % (50.0-75.0) H 09/19/17 08:24 Lymph % (Auto) 6.1 % (20.0-40.0) L 09/19/17 08:24 Burt % (Auto) 4.4 % (0.0-10.0) 09/19/17 08:24 Eos % (Auto) 0.0 % (0.0-4.0) 09/19/17 08:24 Baso % (Auto) 0.1 % (0.0-2.0) 09/19/17 08:24 Neut # 11.6 K/uL (1.8-7.0) H 09/19/17 08:24 Lymph # 0.8 K/uL (1.0-4.3) L 09/19/17 08:24 Burt # 0.6 K/uL (0.0-0.8) 09/19/17 08:24 Eos # 0.0 K/uL (0.0-0.7) 09/19/17 08:24 Baso # 0.0 K/uL (0.0-0.2) 09/19/17 08:24 Neutrophils % (Manual) 89 % (50-75) H 09/19/17 08:24 Band Neutrophils % 1 % (0-2) 09/19/17 08:24 Lymphocytes % (Manual) 9 % (20-40) L 09/19/17 08:24 Monocytes % (Manual) 1 % (0-10) 09/19/17 08:24 Platelet Estimate Normal (NORMAL) 09/19/17 08:24 RBC Morphology Normal 09/19/17 08:24 PT 11.8 SECONDS (9.7-12.2) 09/21/17 06:17 INR 1.1 09/21/17 06:17 APTT 26 SECONDS (21-34) 09/21/17 06:17 Sodium 136 mmol/L (132-148) 09/19/17 08:24 Potassium 4.1 mmol/L (3.6-5.2) 09/19/17 08:24 Chloride 102 mmol/L (98-107) 09/19/17 08:24 Carbon Dioxide 26 mmol/L (22-30) 09/19/17 08:24 Anion Gap 13 (10-20) 09/19/17 08:24 BUN 21 mg/dL (9-20) H 09/19/17 08:24 Creatinine 0.8 mg/dL (0.8-1.5) 09/19/17 08:24 Est GFR ( Amer) > 60 09/19/17 08:24 Est GFR (Non-Af Amer) > 60 09/19/17 08:24 POC Glucose (mg/dL) 112 mg/dL (65-110) H 09/21/17 16:15 Random Glucose 121 mg/dL (75-110) H 09/19/17 08:24 Hemoglobin A1c 5.5 % (4.2-6.5) 09/17/17 06:25 Calcium 8.3 mg/dl (8.6-10.4) L 09/19/17 08:24 Phosphorus 4.2 mg/dL (2.5-4.5) 09/17/17 06:25 Magnesium 2.1 mg/dL (1.6-2.3) 09/17/17 06:25 Total Bilirubin 0.5 mg/dL (0.2-1.3) 09/19/17 08:24 AST 14 U/L (17-59) L 09/19/17 08:24 ALT 19 U/L (21-72) L D 09/19/17 08:24 Alkaline Phosphatase 42 U/L (38-126) 09/19/17 08:24 Total Protein 6.1 g/dL (6.3-8.3) L 09/19/17 08:24 Albumin 3.5 g/dL (3.5-5.0) 09/19/17 08:24 Globulin 2.7 gm/dL (2.2-3.9) 09/19/17 08:24 Albumin/Globulin Ratio 1.3 (1.0-2.1) 09/19/17 08:24 TSH 3rd Generation 0.51 mIU/L (0.46-4.68) 09/17/17 06:25 Urine Color Yellow (YELLOW) 09/15/17 15:06 Urine Clarity Hazy (Clear) 09/15/17 15:06 Urine pH 6.0 (5.0-8.0) 09/15/17 15:06 Ur Specific [place] 1.021 (1.003-1.030) 09/15/17 15:06 Urine Protein Negative mg/dL (NEGATIVE) 09/15/17 15:06 Urine Glucose (UA) Normal mg/dL (Normal) 09/15/17 15:06 Urine Ketones Negative mg/dL (NEGATIVE) 09/15/17 15:06 Urine Blood Negative (NEGATIVE) 09/15/17 15:06 Urine Nitrate Negative (NEGATIVE) 09/15/17 15:06 Urine Bilirubin Negative (NEGATIVE) 09/15/17 15:06 Urine Urobilinogen Normal mg/dL (0.2-1.0) 09/15/17 15:06 Ur Leukocyte Esterase Neg Samantha/uL (Negative) 09/15/17 15:06 Urine WBC (Auto) 1 /hpf (0-5) 09/15/17 15:06 Urine RBC (Auto) 2 /hpf (0-3) 09/15/17 15:06 Ur Squamous Epith Cells < 1 /hpf (0-5) 09/15/17 15:06 Amorphous Sediment Rare /ul (<OCC) H 09/15/17 15:06 Urine Opiates Screen Negative (NEGATIVE) 09/15/17 15:06 Urine Methadone Screen Negative (NEGATIVE) 09/15/17 15:06 Ur Barbiturates Screen Negative (NEGATIVE) 09/15/17 15:06 Ur Phencyclidine Scrn Negative (NEGATIVE) 09/15/17 15:06 Ur Amphetamines Screen Negative (NEGATIVE) 09/15/17 15:06 U Benzodiazepines Scrn Negative (NEGATIVE) 09/15/17 15:06 U Oth Cocaine Metabols Negative (NEGATIVE) 09/15/17 15:06 U Cannabinoids Screen Negative (NEGATIVE) 09/15/17 15:06 Alcohol, Quantitative < 10 mg/dl (0-10) 09/15/17 15:06 HIV 1&2 Antibody Screen Negative (NEGATIVE) 09/17/17 06:25 Influenza Typ A,B (EIA) Negative for flu a/b (NEGATIVE) 09/15/17 15:15 Attending/Attestation - Attestation I have personally seen and examined this patient.: Yes I have fully participated in the care of the patient.: Yes I have reviewed all pertinent clinical information, including history, physical exam and plan: Yes Notes (Text): 09/22/17 15:07 Medical attending: Patient was seen and examined by me, agrees the above note by director medical surgical. Patient has been transferred to [facility] for further intervention for debulking and biopsy. As mentioned previously he had a partial oligodendroglioma resection in [place] in [address] scans as well as MRI done here shows a 2,8 by 2.1 mass in the right frontal lobe with extensive edema. Patient has been on decadron while here. The reports are concerning for a glioblastoma. He has been on Keppra PO BID for seizure prophylaxis. thank you Hubert Cedeño
== END 2017-09-21 20:32 | disposition short-term general hospital (02) | DRG 11 ==
LOC: C.ER 12:34 → C.9E 18:52 → C.9I 20:39 → C.6T 09-16 22:29
PROVIDERS: ADMIT Hospitalist; ATTEND Hospitalist
DX: C71.1 Malignant neoplasm of frontal lobe (principal); G93.6 Cerebral edema; G40.909 Epilepsy, unspecified, not intractable, without status epilepticus; Z92.3 Personal history of irradiation; Z85.841 Personal history of malignant neoplasm of brain; G47.00 Insomnia, unspecified